=== PATIENT | female | born 2000 | race Caucasian/White ===

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

== ENCOUNTER → 2018-01-24 | Outpatient (CLI) | payer MEDICAID ==
--- NOTE | 2018-01-24 16:48 | Diagnostic Imaging Report ---
INDICATION: Follow-up low-lying placenta TECHNIQUE: Multiple real-time grayscale images were obtained over the gravid uterus. COMPARISON: 10/17/2017 and 11/30/2017. FINDINGS: The OB ultrasound exam performed on 11/30/2017 noted a single live fetus of approximately 18 weeks 1 day gestation +/- 1.5 weeks. On this exam, fetus is again identified and is now in transverse presentation with the head on maternal right. heart motion is noted and a rate of 139 bpm is recorded. On the prior exam, both renal pelves did seem prominent measuring between 2-3 mm. In the interval since the prior exam, both renal pelves have increased in size. The left renal pelvis now measures 5.5 mm while the right is estimated to be 4.0 mm. The etiology of the dilatation of the renal pelvis is not certain. There is no evidence for ascites. No other abnormality is noted. In particular, the four-chamber heart view appears to be within normal limits. The placenta is along the right lateral aspect of the uterus. There is no sign of a previa. The amniotic fluid volume is within normal limits. Cervix is identified and measures 5.4 cm in length. The growth parameters are not obtained for this study. IMPRESSION: 1. There is a single live fetus of approximately 26 weeks 4 days gestation +/- 1 week. The EDC remains April 28, 2018. 2. The renal pelves do seem more dilated than on the prior exam. The reason for this is not certain. There is no sign of ascites. Consultation with the high-risk OB physician should be considered. 3. There is no other abnormality identified. 4. The growth parameters were not obtained for this exam. Dictated by: Dictated on workstation # [id number]
== END ==
LOC: RAD 13:57
PROVIDERS: ATTEND Family Medicine
DX: Z34.02 Encounter for supervision of normal first pregnancy, second trimester (principal); Z3A.26 26 weeks gestation of pregnancy
CPT/HCPCS: 76816

== ENCOUNTER → 2018-05-03 | Outpatient (CLI) | payer MEDICAID ==
[~2018-05-03] MED LIST: DOCU100C37 PO; IBUP-1780 PO; OXYC-465 PO
--- NOTE | 2018-05-03 17:20 | Diagnostic Imaging Report ---
INDICATION: Decreased movement TECHNIQUE: The fetus was observed by the money examiner for purposes of a nonstress biophysical profile evaluation. FINDINGS: Intrauterine is currently in a cephalic presentation. The placenta is along the right lateral aspect without evidence for previa. cardiac activity at 143 beats per minute. Mild severity polyhydramnios with an index at 21 cm. Biophysical Profile Scoring: breathin Body movement: 0 tone: 2 Amniotic fluid: 2 Total BPP Score: 4/8 IMPRESSION: 1. Abnormal biophysical profile score. 2. Borderline polyhydramnios. Findings for provided by the money examiner at time of imaging. Dictated by: Dictated on workstation # [id number]
== END ==
LOC: RAD 16:21
PROVIDERS: ATTEND Family Medicine
DX: O48.0 Post-term pregnancy (principal); O36.8130 Decreased fetal movements, third trimester, not applicable or unspecified; Z3A.42 42 weeks gestation of pregnancy
CPT/HCPCS: 76819

== ENCOUNTER 2018-09-23 22:39 | Emergency (ER) | payer BC, MEDICAID ==
[~2018-09-23] VITALS: Ht 167.6 cm; Wt 54.4 kg
--- OUTSIDE RECORDS SUMMARY | 2018-09-23 22:43 | XMS REPORT ---
Author Author KE CHAMBERS Organization [facility] Address [address] [place] [address] Care Team Providers Care News Camera Person Name Role Phone KE CHAMBERS Unavailable PROBLEMS Type Condition ICD9-CM Code XZR36-PL Code Onset Dates Condition Status SNOMED Code Problem Dental caries K02.9 Active 09655751 ALLERGIES No Known Allergies ENCOUNTERS Encounter Location Date Diagnosis [place] [id number] [place] [id number] [place] [address] 95410- 7897 Jul, [place] [address] [address]- [address] Jun, 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 [place] [address] [address] [id number] [place] [address] 05648- 1156 Jun, 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 [place] [id number] [place] [address] 94015- 6270 Jun, 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 [place] [address] [id number] [place] [address] 80964- 4731 Jun, control counseling Z30.09 [place] [address] 87046- 3861 Jun, Encounter for visit Z39.2 ; 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 ; control counseling Z30.09 and Urinary tract infection without hematuria, site unspecified N39.0 [place] [id number] [place] [address] 04547- 2692 May, [place] [address] [id number] [place] [address] 68478- 5486 Apr, Post-term , 40-42 weeks of gestation O48.0 and Decreased movements in third trimester, single or unspecified fetus O36.8130 [place] [address] [address] [id number] [place] [address] 35017- 6411 Apr, 40 weeks gestation of Z3A.40 ; Third trimester Z34.93 and Positive GBS test B95.1 [place] [address] [id number] [place] [address] 09835- 2285 09 Apr, 2018 39 weeks gestation of Z3A.39 and Third trimester Z34.93 [facility] [id number] [place] [id number] [phone] Apr, 2018 Dental examination Z01.20 [place] [address] [id number] [place] [address] 85236- 4876 02 Apr, 2018 38 weeks gestation of Z3A.38 ; Third trimester Z34.93 and Positive GBS test B95.1 [place] [address] [id number] [place] [address] 61009- 8372 Mar, Third trimester Z34.93 ; 37 weeks gestation of Z3A.37 and Positive GBS test B95.1 [place] [address] [id number] [place] [address] 19569- 2935 Mar, care in third trimester Z34.93 ; 36 weeks gestation of Z3A.36 and Yeast infection B37.9 [place] [address] [id number] [place] [address] 70105- 3476 Mar, care in third trimester Z34.93 and 35 weeks gestation of Z3A.35 [place] [address] [id number] [place] [address] 79703- 6519 Feb, 33 weeks gestation of Z3A.33 and Third trimester Z34.93 [place] [address] [id number] [place] [address] 18205- 7464 Feb, Dental examination Z01.20 [place] [address] [address] [id number] [place] [address] 59436- 5220 Feb, care in third trimester Z34.93 ; Encounter for immunization Z23 and 31 weeks gestation of Z3A.31 [place] [address] 80228- 1578 January, Third trimester Z34.93 ; 29 weeks gestation of Z3A.29 and Abnormal obstetric ultrasound scan O28.3 [place] [address] 28254- 1936 January, Normal first in second trimester Z34.02 and 25 weeks gestation of Z3A.25 [place] [address] 98764- 5619 Dec, Dental examination Z01.20 and Dental caries K02.9 [place] [address] 05250- 3128 Dec, [place] [address] 80448- 7180 Nov, Screening for deficiency anemia Z13.0 [place] [address] 18218- 2866 Nov, [place] [address] 15392- 5490 Nov, Normal first in second trimester Z34.02 ; 20 weeks gestation of Z3A.20 and High risk teen in second trimester O09.892 [place] [address] [id number] [place] [address] 18125- 4516 Nov, [place] [address] [id number] [place] [address] 18814- 0906 Nov, 16 weeks gestation of Z3A.16 ; Low lying placenta NOS or without hemorrhage, second trimester O44.42 ; High risk teen in second trimester O09.892 and Second trimester Z34.92 [place] [address] [id number] [place] [address] 07349- 2441 Sep, Normal , first Z34.00 ; 12 weeks gestation of Z3A.12 and High risk teen in second trimester O09.892 [facility] [address] [facility] [id number] [place] [address] Sep, [facility] [address] [facility] [id number] [place] [address]234 Sep, Encounter for test, result unknown Z32.00 IMMUNIZATIONS No Known Immunizations SOCIAL HISTORY Never Assessed REASON FOR VISIT depression fu, patient states she hasn't been able to 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 medication from pharmacy _ _ héctor little PLAN OF CARE Activity Details Follow Up 2 Months with [facility] Reason: VITAL SIGNS MEDICATIONS Medication Instructions Dosage Frequency Start Date End Date Duration Status Zoloft 25 MG Orally Once a day 1/2 tab x 6 days then 1 tablet 24h Jun, 30 day(s) Not-Taking Ortho Micronor 0.35 MG Orally Once a day 1 tablet 24h Jun, 28 days Not-Taking RESULTS No Results PROCEDURES No Known procedures INSTRUCTIONS MEDICATIONS ADMINISTERED No Known Medications MEDICAL (GENERAL) HISTORY Type Description Date Medical History - April 2018 Surgical History Appendectomy 2011 Surgical History Tonsilectomy 2012 Hospitalization History Surgery
--- OUTSIDE RECORDS SUMMARY | 2018-09-23 22:43 | XMS REPORT ---
Author Author KE CHAMBERS Organization [facility] Address [address] [place] [address] Care Team Providers Care Storage Garage Manager Name Role Phone KE CHAMBERS Unavailable PROBLEMS Type Condition ICD9-CM Code CES91-GG Code Onset Dates Condition Status SNOMED Code Problem Dental caries K02.9 Active [id number] ALLERGIES No Information ENCOUNTERS Encounter Location Date Diagnosis [facility] [id number] [place] [address] 73992- 2677 Jul, [facility] [id number] [place] [address] 86434- 4968 Jul, [facility] [id number] [place] [address] 16618- 0091 Jun, 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 [facility] [id number] [place] [address] 77754- 8212 Jun, 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 [facility] [address] [place] [address] 58063- 8866 Jun, 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 [facility] [id number] [place] [address] 07928- 6292 Jun, control counseling Z30.09 [facility] [id number] [place] [address] 78658- 7592 Jun, Encounter for visit Z39.2 ; 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 ; control counseling Z30.09 and Urinary tract infection without hematuria, site unspecified N39.0 [facility] [address] [place] [address] 04529- 4180 May, [facility] [id number] [place] [address] 62546- 6233 Apr, Post-term , 40-42 weeks of gestation O48.0 and Decreased movements in third trimester, single or unspecified fetus O36.8130 [place] [id number] [place] [address] 09599- 4219 Apr, 40 weeks gestation of Z3A.40 ; Third trimester Z34.93 and Positive GBS test B95.1 [place] [address] 56886- 0568 09 Apr, 2018 39 weeks gestation of Z3A.39 and Third trimester Z34.93 [facility] [address] [id number] Apr, Dental examination Z01.[address] 88984- 0718 Apr, 38 weeks gestation of Z3A.38 ; Third trimester Z34.93 and Positive GBS test B95.1 [place] [id number] [place] [address] 45476- 9440 Mar, Third trimester Z34.93 ; 37 weeks gestation of Z3A.37 and Positive GBS test B95.1 [place] [address] [id number] [place] [address] 48607- 6878 Mar, care in third trimester Z34.93 ; 36 weeks gestation of Z3A.36 and Yeast infection B37.9 [place] [address] [id number] [place] [address] 62264- 3961 Mar, care in third trimester Z34.93 and 35 weeks gestation of Z3A.[address] 13404- 6006 Feb, 33 weeks gestation of Z3A.33 and Third trimester Z34.[address] 36362- 4362 Feb, Dental examination Z01.20 [place] [address] [place] [address] 09751- 1860 Feb, care in third trimester Z34.93 ; Encounter for immunization Z23 and 31 weeks gestation of Z3A.31 [place] [id number] [place] [address] 14566- 4830 January, Third trimester Z34.93 ; 29 weeks gestation of Z3A.29 and Abnormal obstetric ultrasound scan O28.3 [place] [address] [id number] [place] [address] 46322- 0168 January, Normal first in second trimester Z34.02 and 25 weeks gestation of Z3A.25 [place] [address] [id number] [place] [address] 37728- 2984 Dec, Dental examination Z01.20 and Dental caries K02.9 [place] [address] 60141- 9214 Dec, [place] [address] 07479- 3778 Nov, Screening for deficiency anemia Z13.0 [place] [address] [id number] [place] [address] 83827- 4089 Nov, [place] [address] [id number] [place] [address] 70025- 9582 Nov, Normal first in second trimester Z34.02 ; 20 weeks gestation of Z3A.20 and High risk teen in second trimester O09.892 [place] [address] [id number] [place] [address] 03808- 9404 Nov, [place] [address] 12635- 7521 Nov, 16 weeks gestation of Z3A.16 ; Low lying placenta NOS or without hemorrhage, second trimester O44.42 ; High risk teen in second trimester O09.892 and Second trimester Z34.92 [place] [address] [facility] [id number], [place] [address]- 2843 Sep, Normal , first Z34.00 ; 12 weeks gestation of Z3A.12 and High risk teen in second trimester O09.892 [facility] [address] [facility] [id number], [place] [address]- 0666 Sep, [facility] [address] [facility] [id number], [place] [address]- [address]75 Sep, Encounter for test, result unknown Z32.00 IMMUNIZATIONS No Known Immunizations SOCIAL HISTORY Never Assessed REASON FOR VISIT refill request PLAN OF CARE VITAL SIGNS MEDICATIONS Unknown Medications RESULTS No Results PROCEDURES No Known procedures INSTRUCTIONS MEDICATIONS ADMINISTERED No Known Medications MEDICAL (GENERAL) HISTORY Type Description Date Medical History - April 2018 Surgical History Appendectomy 2011 Surgical History Tonsilectomy 2013 Hospitalization History Surgery
--- OUTSIDE RECORDS SUMMARY | 2018-09-23 22:43 | XMS REPORT ---
Author Author KE CHAMBERS Organization [facility] [place] Address [address] [place] [address] Care Team Providers Care Historic Sites Registrar Name Role Phone KE CHAMBERS Unavailable PROBLEMS Type Condition ICD9-CM Code PGR37-MQ Code Onset Dates Condition Status SNOMED Code Problem Dental caries K02.9 Active 28002505 ALLERGIES No Information ENCOUNTERS Encounter Location Date Diagnosis [facility] [place] [id number] [place] [address] 77741- 2509 Jul, [facility] [place] [id number] [place] [address] 37756- 4749 Jul, [facility] [place] [id number] [place] [address] 49416- 7327 Jun, 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 [facility] [place] [id number] [place] [address] 65019- 8255 Jun, 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 [facility] [place] [address] [place] [address] 79352- 4534 Jun, 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 [facility] [place] [id number] [place] [address] 47894- 3788 Jun, control counseling Z30.09 [facility] [place] [id number] [place] [address] 58128- 8421 Jun, Encounter for visit Z39.2 ; 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 ; control counseling Z30.09 and Urinary tract infection without hematuria, site unspecified N39.0 [facility] [place] [address] [place] [address] 91502- 8590 May, [facility] [place] [address] [id number] [place] [address] 48450- 8088 Apr, Post-term , 40-42 weeks of gestation O48.0 and Decreased movements in third trimester, single or unspecified fetus O36.8130 [place] [id number] [place] [address] 15438- 8940 Apr, 40 weeks gestation of Z3A.40 ; Third trimester Z34.93 and Positive GBS test B95.1 [place] [address] 41527- 0697 09 Apr, 2018 39 weeks gestation of Z3A.39 and Third trimester Z34.93 [facility] [address] [id number] Apr, Dental examination Z01.[address] 56047- 7247 Apr, 38 weeks gestation of Z3A.38 ; Third trimester Z34.93 and Positive GBS test B95.1 [place] [id number] [place] [address] 53689- 2166 Mar, Third trimester Z34.93 ; 37 weeks gestation of Z3A.37 and Positive GBS test B95.1 [place] [id number] [place] [address] 92504- 2378 Mar, care in third trimester Z34.93 ; 36 weeks gestation of Z3A.36 and Yeast infection B37.9 [place] [id number] [place] [address] 69611- 5777 Mar, care in third trimester Z34.93 and 35 weeks gestation of Z3A.[address] 64280- 9283 Feb, 33 weeks gestation of Z3A.33 and Third trimester Z34.[address] 14113- 9297 Feb, Dental examination Z01.20 [place] [address] [place] [address] 12891- 7163 Feb, care in third trimester Z34.93 ; Encounter for immunization Z23 and 31 weeks gestation of Z3A.31 [place] [id number] [place] [address] 78142- 0944 January, Third trimester Z34.93 ; 29 weeks gestation of Z3A.29 and Abnormal obstetric ultrasound scan O28.3 [place] [id number] [place] [address] 92273- 4267 January, Normal first in second trimester Z34.02 and 25 weeks gestation of Z3A.25 [place] [id number] [place] [address] 68961- 0217 Dec, Dental examination Z01.20 and Dental caries K02.9 [place] [address] 25710- 9492 Dec, [place] [address] 04613- 7492 Nov, Screening for deficiency anemia Z13.0 [place] [id number] [place] [address] 61731- 6196 Nov, [place] [id number] [place] [address] 23922- 6929 Nov, Normal first in second trimester Z34.02 ; 20 weeks gestation of Z3A.20 and High risk teen in second trimester O09.892 [place] [id number] [place] [address] 34805- 7222 Nov, [place] [address] 19193- 9017 Nov, 16 weeks gestation of Z3A.16 ; Low lying placenta NOS or without hemorrhage, second trimester O44.42 ; High risk teen in second trimester O09.892 and Second trimester Z34.92 [place] [address] [facility] [id number] [place] [address]- 0884 Sep, Normal , first Z34.00 ; 12 weeks gestation of Z3A.12 and High risk teen in second trimester O09.892 [facility] [place] [address] [facility] [id number], [place] [address]- 6480 Sep, [facility] [place] [address] [facility] [id number], [place] [address]- 8547 Sep, Encounter for test, result unknown Z32.00 IMMUNIZATIONS No Known Immunizations SOCIAL HISTORY Never Assessed REASON FOR VISIT PPD Appt r/s PLAN OF CARE VITAL SIGNS MEDICATIONS Unknown Medications RESULTS No Results PROCEDURES No Known procedures INSTRUCTIONS MEDICATIONS ADMINISTERED No Known Medications MEDICAL (GENERAL) HISTORY Type Description Date Medical History - April 2018 Surgical History Appendectomy 2011 Surgical History Tonsilectomy 2012 Hospitalization History Surgery
--- OUTSIDE RECORDS SUMMARY | 2018-09-23 22:44 | XMS REPORT ---
Author Author KE CHAMBERS Organization [facility] Address [address] [place] [address] Care Team Providers Care Manufacturing Engineering Technologist Name Role Phone KE CHAMBERS Unavailable PROBLEMS Type Condition ICD9-CM Code MIZ34-XX Code Onset Dates Condition Status SNOMED Code Problem Dental caries K02.9 Active [id number] ALLERGIES No Information ENCOUNTERS Encounter Location Date Diagnosis [facility] [id number] [place] [address] 67838- 1766 Jun, [place] [address] 64654- 3082 Jun, [facility] [address] 20024- 5050 Jun, Encounter for visit Z39.2 ; 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 ; control counseling Z30.09 and Urinary tract infection without hematuria, site unspecified N39.0 [place] [id number] [place] [address] 64482- 5048 May, [place] [id number] [place] [address] 51576- 0340 Apr, Post-term , 40-42 weeks of gestation O48.0 and Decreased movements in third trimester, single or unspecified fetus O36.8130 [place] [id number] [place] [address] 27709- 1751 Apr, 40 weeks gestation of Z3A.40 ; Third trimester Z34.93 and Positive GBS test B95.1 [place] [address] [place] [address] 82850- 7446 Apr, 39 weeks gestation of Z3A.39 and Third trimester Z34.93 [facility] [address] [place] [address] [id number] 07 Apr, 2018 Dental examination Z01.20 [place] [id number] [place] [address] 28624- 5894 Apr, 38 weeks gestation of Z3A.38 ; Third trimester Z34.93 and Positive GBS test B95.1 [place] [address] 80148- 5531 Mar, Third trimester Z34.93 ; 37 weeks gestation of Z3A.37 and Positive GBS test B95.1 [place] [address] 52399- 2616 Mar, care in third trimester Z34.93 ; 36 weeks gestation of Z3A.36 and Yeast infection B37.9 [place] [address] 38974- 4094 Mar, care in third trimester Z34.93 and 35 weeks gestation of Z3A.35 [place] [address] 12443- 4990 Feb, 33 weeks gestation of Z3A.33 and Third trimester Z34.93 [place] [address] 69850- 2641 27 Feb, 2018 Dental examination Z01.20 [place] [address] 08636- 5205 13 Feb, 2018 care in third trimester Z34.93 ; Encounter for immunization Z23 and 31 weeks gestation of Z3A.31 [place] [address] 87043- 0903 January, Third trimester Z34.93 ; 29 weeks gestation of Z3A.29 and Abnormal obstetric ultrasound scan O28.3 [place] [address] 08246- 5884 January, Normal first in second trimester Z34.02 and 25 weeks gestation of Z3A.25 [place] [address] [address] 1198 13 Dec, 2017 Dental examination Z01.20 and Dental caries K02.9 [place] [id number] [place] [address] 87241- 8057 Dec, [place] [id number] [place] [address] 86828- 3786 Nov, Screening for deficiency anemia Z13.0 [place] [id number] [place] [address] 32107- 4177 Nov, [place] [id number] [place] [address] 06730- 8125 Nov, Normal first in second trimester Z34.02 ; 20 weeks gestation of Z3A.20 and High risk teen in second trimester O09.892 [place] [id number] [place] [address] 21682- 9884 Nov, [place] [id number] [place] [address] 01928- 8035 Nov, 16 weeks gestation of Z3A.16 ; Low lying placenta NOS or without hemorrhage, second trimester O44.42 ; High risk teen in second trimester O09.892 and Second trimester Z34.92 [place] [id number] [place] [address] 09681- 8358 Sep, Normal , first Z34.00 ; 12 weeks gestation of Z3A.12 and High risk teen in second trimester O09.892 [place] [id number] [place] [address] 04188- 7465 Sep, [place] [id number] [place] [address] 84591- 2696 Sep, Encounter for test, result unknown Z32.00 IMMUNIZATIONS No Known Immunizations SOCIAL HISTORY Never Assessed REASON FOR VISIT PLAN OF CARE VITAL SIGNS MEDICATIONS Unknown Medications RESULTS No Results PROCEDURES No Known procedures INSTRUCTIONS MEDICATIONS ADMINISTERED No Known Medications MEDICAL (GENERAL) HISTORY Type Description Date Medical History - April 2018 Surgical History Appendectomy 2011 Surgical History Tonsilectomy 2012 Hospitalization History Surgery
--- OUTSIDE RECORDS SUMMARY | 2018-09-23 22:44 | XMS REPORT ---
Author Author KE CHAMBERS Organization [facility] Address [address] [place] [address] Care Team Providers Care Microfiche Duplicator Name Role Phone KE CHAMBERS Unavailable PROBLEMS Type Condition ICD9-CM Code CST16-ME Code Onset Dates Condition Status SNOMED Code Problem Dental caries K02.9 Active [id number] ALLERGIES No Information ENCOUNTERS Encounter Location Date Diagnosis [facility] [id number] [place] [address] 01698- 4120 Jun, [facility] [address] 32638- 0176 Jun, [facility] [address] 27718- 1287 May, [facility] [id number] [place] [address] 65407- 3924 Apr, Post-term , 40-42 weeks of gestation O48.0 and Decreased movements in third trimester, single or unspecified fetus O36.8130 [facility] [id number] [place] [address] 85377- 7497 Apr, 40 weeks gestation of Z3A.40 ; Third trimester Z34.93 and Positive GBS test B95.1 [facility] [id number] [place] [address] 03896- 7541 Apr, 39 weeks gestation of Z3A.39 and Third trimester Z34.93 [facility] [id number] [place] [address] [phone] Apr, Dental examination Z01.20 [facility] [id number] [place] [address] 73614- 7812 Apr, 38 weeks gestation of Z3A.38 ; Third trimester Z34.93 and Positive GBS test B95.1 [place] [id number] [place] [address] 66878- 5204 Mar, Third trimester Z34.93 ; 37 weeks gestation of Z3A.37 and Positive GBS test B95.1 [place] [id number] [place] [address] 27702- 5021 Mar, care in third trimester Z34.93 ; 36 weeks gestation of Z3A.36 and Yeast infection B37.9 [place] [id number] [place] [address] 45408- 6809 Mar, care in third trimester Z34.93 and 35 weeks gestation of Z3A.35 [place] [address] 44878- 7010 Feb, 33 weeks gestation of Z3A.33 and Third trimester Z34.93 [place] [address] 87033- 5858 Feb, Dental examination Z01.20 [place] [address] 16253- 5348 Feb, care in third trimester Z34.93 ; Encounter for immunization Z23 and 31 weeks gestation of Z3A.31 [place] [id number] [place] [address] 00736- 0826 January, Third trimester Z34.93 ; 29 weeks gestation of Z3A.29 and Abnormal obstetric ultrasound scan O28.3 [place] [id number] [place] [address] 36077- 7248 January, Normal first in second trimester Z34.02 and 25 weeks gestation of Z3A.25 [place] [id number] [place] [address] 15040- 4979 Dec, Dental examination Z01.20 and Dental caries K02.9 [place] [address] [place] [address] [address]- 7011 Dec, [place] [id number] [place] [address] 92336- 2700 Nov, Screening for deficiency anemia Z13.0 [place] [id number] [place] [address] 00669- 9083 Nov, [place] [address] 04938- 1337 Nov, Normal first in second trimester Z34.02 ; 20 weeks gestation of Z3A.20 and High risk teen in second trimester O09.892 [place] [address] 94704- 8863 Nov, [place] [address] [id number] [place] [address] 43969- 3202 Nov, 16 weeks gestation of Z3A.16 ; Low lying placenta NOS or without hemorrhage, second trimester O44.42 ; High risk teen in second trimester O09.892 and Second trimester Z34.92 [place] [address] [place] [id number] [place] [address] 45926- 9137 Sep, Normal , first Z34.00 ; 12 weeks gestation of Z3A.12 and High risk teen in second trimester O09.892 [place] [address] [id number] [place] [address] 48383- 6279 Sep, [place] [address] [id number] [place] [address] 50971- 4038 Sep, Encounter for test, result unknown Z32.00 IMMUNIZATIONS No Known Immunizations SOCIAL HISTORY Never Assessed REASON FOR VISIT OB 1wk f/u -- héctor little PLAN OF CARE Activity Details Follow Up 1 Week Reason: VITAL SIGNS Height 66 in 2018-04-10 Weight 156.8 lbs 2018-04-10 Temperature 97.6 degrees Fahrenheit 2018-04-10 BMI 25.308 kg/m2 2018-04-10 Blood pressure systolic 118 mmHg 2018-04-10 Blood pressure diastolic 70 mmHg 2018-04-10 MEDICATIONS Medication Instructions Dosage Frequency Start Date End Date Duration Status Complete 14-0.4 MG Orally Once a day 1 tablet 24h Active RESULTS Name Result Date Reference Range UA OB DIP (IN HOUSE) 2018-04-10 Glucose neg Protein neg PROCEDURES Procedure Date Ordered Result Body Site URINE-NO MICRO April 10, 2018 INSTRUCTIONS MEDICATIONS ADMINISTERED No Known Medications MEDICAL (GENERAL) HISTORY Type Description Date Medical History - April 2018 Surgical History Appendectomy 2011 Surgical History Tonsilectomy 2012 Hospitalization History Surgery
--- OUTSIDE RECORDS SUMMARY | 2018-09-23 22:44 | XMS REPORT ---
Author Author KE CHAMBERS Organization [facility] Address [address] [place] [address] Care Team Providers Care Otr Company Driver Name Role Phone KE CHAMBERS Unavailable PROBLEMS Type Condition ICD9-CM Code TQH32-MW Code Onset Dates Condition Status SNOMED Code Problem Dental caries K02.9 Active [id number] ALLERGIES No Known Allergies ENCOUNTERS Encounter Location Date Diagnosis [facility] [id number] [place] [address] 07731- 8856 Jun, [facility] [id number] [place] [address] 48888- 6167 Jun, [facility] [address] 35205- 0158 May, [facility] [id number] [place] [address] 66871- 6145 Apr, Post-term , 40-42 weeks of gestation O48.0 and Decreased movements in third trimester, single or unspecified fetus O36.8130 [facility] [id number] [place] [address] 87457- 4847 Apr, 40 weeks gestation of Z3A.40 ; Third trimester Z34.93 and Positive GBS test B95.1 [facility] [id number] [place] [address] 41743- 7425 Apr, 39 weeks gestation of Z3A.39 and Third trimester Z34.93 [facility] [id number] [place] [address] [phone] Apr, Dental examination Z01.20 [facility] [id number] [place] [address] 72189- 5198 Apr, 38 weeks gestation of Z3A.38 ; Third trimester Z34.93 and Positive GBS test B95.1 [place] [id number] [place] [address] 05863- 0320 Mar, Third trimester Z34.93 ; 37 weeks gestation of Z3A.37 and Positive GBS test B95.1 [place] [id number] [place] [address] 84613- 2149 Mar, care in third trimester Z34.93 ; 36 weeks gestation of Z3A.36 and Yeast infection B37.9 [place] [id number] [place] [address] 40457- 1002 Mar, care in third trimester Z34.93 and 35 weeks gestation of Z3A.35 [place] [id number] [place] [address] 77220- 8932 Feb, 33 weeks gestation of Z3A.33 and Third trimester Z34.93 [place] [id number] [place] [address] 28037- 0883 Feb, Dental examination Z01.20 [place] [address] 15803- 1122 Feb, care in third trimester Z34.93 ; Encounter for immunization Z23 and 31 weeks gestation of Z3A.31 [place] [id number] [place] [address] 57366- 0389 January, Third trimester Z34.93 ; 29 weeks gestation of Z3A.29 and Abnormal obstetric ultrasound scan O28.3 [place] [id number] [place] [address] 61858- 6454 January, Normal first in second trimester Z34.02 and 25 weeks gestation of Z3A.25 [place] [id number] [place] [address] 76845- 1271 Dec, Dental examination Z01.20 and Dental caries K02.9 [place] [address] [id number] [place] [address] 22187- 1863 Dec, [place] [id number] [place] [address] 73396- 1229 Nov, Screening for deficiency anemia Z13.0 [place] [id number] [place] [address] 84835- 9510 Nov, [place] [address] 20136- 6690 Nov, Normal first in second trimester Z34.02 ; 20 weeks gestation of Z3A.20 and High risk teen in second trimester O09.892 [place] [id number] [place] [address] 31773- 5980 Nov, [place] [id number] [place] [address] 79578- 7030 Nov, 16 weeks gestation of Z3A.16 ; Low lying placenta NOS or without hemorrhage, second trimester O44.42 ; High risk teen in second trimester O09.892 and Second trimester Z34.92 [place] [id number] [place] [address] 45454- 4563 Sep, Normal , first Z34.00 ; 12 weeks gestation of Z3A.12 and High risk teen in second trimester O09.892 [place] [id number] [place] [address] 39505- 8533 Sep, [place] [id number] [place] [address] 18112- 6299 Sep, Encounter for test, result unknown Z32.00 IMMUNIZATIONS No Known Immunizations SOCIAL HISTORY Never Assessed REASON FOR VISIT Elevated BP-----DBennettRN PLAN OF CARE Activity Details Follow Up Sunday NST, IOL scheduled Reason: VITAL SIGNS Height 66 in 2018-04-29 Weight 160 lbs 2018-04-29 Temperature 98.2 degrees Fahrenheit 2018-04-29 Heart Rate 90 bpm 2018-04-29 Respiratory Rate 20 2018-04-29 BMI 25.825 kg/m2 2018-04-29 Blood pressure systolic 118 mmHg 2018-04-29 Blood pressure diastolic 74 mmHg 2018-04-29 MEDICATIONS Medication Instructions Dosage Frequency Start Date End Date Duration Status Complete 14-0.4 MG Orally Once a day 1 tablet 24h Active RESULTS Name Result Date Reference Range UA OB DIP (IN HOUSE) 2018-04-29 Glucose neg Protein neg PROCEDURES Procedure Date Ordered Result Body Site URINE-NO MICRO Apr 29, 2018 INSTRUCTIONS MEDICATIONS ADMINISTERED No Known Medications MEDICAL (GENERAL) HISTORY Type Description Date Medical History - April 2018 Surgical History Appendectomy 2011 Surgical History Tonsilectomy 2012 Hospitalization History Surgery
--- OUTSIDE RECORDS SUMMARY | 2018-09-23 22:44 | XMS REPORT ---
Author Author KE CHAMBERS Organization [facility] Address [address] [place] [address] Care Team Providers Care Barrel Washer Machine Name Role Phone KE CHAMBERS Unavailable PROBLEMS Type Condition ICD9-CM Code UGM90-RG Code Onset Dates Condition Status SNOMED Code Problem Dental caries K02.9 Active [id number] ALLERGIES No Known Allergies ENCOUNTERS Encounter Location Date Diagnosis [facility] [id number] [place] [address] 25387- 5958 Jun, [facility] [id number] [place] [address] 55578- 5119 Jun, [facility] [address] 87794- 0613 May, [facility] [id number] [place] [address] 09639- 2389 Apr, Post-term , 40-42 weeks of gestation O48.0 and Decreased movements in third trimester, single or unspecified fetus O36.8130 [facility] [id number] [place] [address] 52304- 4985 Apr, 40 weeks gestation of Z3A.40 ; Third trimester Z34.93 and Positive GBS test B95.1 [facility] [id number] [place] [address] 50407- 7311 Apr, 39 weeks gestation of Z3A.39 and Third trimester Z34.93 [facility] [id number] [place] [address] [id number] Apr, Dental examination Z01.20 [facility] [id number] [place] [address] 04403- 9047 Apr, 38 weeks gestation of Z3A.38 ; Third trimester Z34.93 and Positive GBS test B95.1 [place] [id number] [place] [address] 02209- 8132 Mar, Third trimester Z34.93 ; 37 weeks gestation of Z3A.37 and Positive GBS test B95.1 [place] [id number] [place] [address] 43692- 2302 Mar, care in third trimester Z34.93 ; 36 weeks gestation of Z3A.36 and Yeast infection B37.9 [place] [id number] [place] [address] 00598- 0813 Mar, care in third trimester Z34.93 and 35 weeks gestation of Z3A.35 [place] [id number] [place] [address] 12274- 3069 Feb, 33 weeks gestation of Z3A.33 and Third trimester Z34.93 [place] [id number] [place] [address] 94670- 3217 Feb, Dental examination Z01.20 [place] [address] 72876- 1953 Feb, care in third trimester Z34.93 ; Encounter for immunization Z23 and 31 weeks gestation of Z3A.31 [place] [id number] [place] [address] 78242- 6295 January, Third trimester Z34.93 ; 29 weeks gestation of Z3A.29 and Abnormal obstetric ultrasound scan O28.3 [place] [id number] [place] [address] 33565- 3013 January, Normal first in second trimester Z34.02 and 25 weeks gestation of Z3A.25 [place] [id number] [place] [address] 13515- 0325 Dec, Dental examination Z01.20 and Dental caries K02.9 [place] [id number] [place] [address] 23952- 7556 Dec, [place] [id number] [place] [address] 90903- 0540 Nov, Screening for deficiency anemia Z13.0 [place] [id number] [place] [address] 34549- 9921 Nov, [place] [address] 44733- 5529 Nov, Normal first in second trimester Z34.02 ; 20 weeks gestation of Z3A.20 and High risk teen in second trimester O09.892 [place] [id number] [place] [address] 70357- 9866 Nov, [place] [id number] [place] [address] 73278- 1483 Nov, 16 weeks gestation of Z3A.16 ; Low lying placenta NOS or without hemorrhage, second trimester O44.42 ; High risk teen in second trimester O09.892 and Second trimester Z34.92 [place] [id number] [place] [address] 17746- 5665 Sep, Normal , first Z34.00 ; 12 weeks gestation of Z3A.12 and High risk teen in second trimester O09.892 [place] [id number] [place] [address] 67202- 8582 Sep, [place] [id number] [place] [address] 61225- 8816 Sep, Encounter for test, result unknown Z32.00 IMMUNIZATIONS No Known Immunizations SOCIAL HISTORY Never Assessed REASON FOR VISIT OB f/u 1 week-billMonique PLAN OF CARE Activity Details Follow Up 1 Week Reason: VITAL SIGNS Height 66 in 2018-04-18 Weight 157.1 lbs 2018-04-18 Temperature 98.7 degrees Fahrenheit 2018-04-18 Heart Rate 84 bpm 2018-04-18 Respiratory Rate 18 2018-04-18 BMI 25.357 kg/m2 2018-04-18 Blood pressure systolic 124 mmHg 2018-04-18 Blood pressure diastolic 72 mmHg 2018-04-18 MEDICATIONS Medication Instructions Dosage Frequency Start Date End Date Duration Status Complete 14-0.4 MG Orally Once a day 1 tablet 24h Active RESULTS Name Result Date Reference Range UA OB DIP (IN HOUSE) 2018-04-18 Glucose neg Protein neg PROCEDURES Procedure Date Ordered Result Body Site URINE-NO MICRO Apr 18, 2018 INSTRUCTIONS MEDICATIONS ADMINISTERED No Known Medications MEDICAL (GENERAL) HISTORY Type Description Date Medical History - April 2018 Surgical History Appendectomy 2011 Surgical History Tonsilectomy 2012 Hospitalization History Surgery
--- OUTSIDE RECORDS SUMMARY | 2018-09-23 22:44 | XMS REPORT ---
Author Author KE CHAMBERS Organization [facility] Address [address] [place] [address] Care Team Providers Care Plumbing Assembler Installer Name Role Phone KE CHAMBERS Unavailable PROBLEMS Type Condition ICD9-CM Code [id number] Code Onset Dates Condition Status SNOMED Code Problem Dental caries K02.9 Active 56121097 ALLERGIES No Information ENCOUNTERS Encounter Location Date Diagnosis [place] [id number] [place] [id number] [place] [address] 19332- 9317 Jun, [place] [address] 25385- 5971 Jun, control counseling Z30.09 [place] [address] 35847- 9433 Jun, Encounter for visit Z39.2 ; 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 ; control counseling Z30.09 and Urinary tract infection without hematuria, site unspecified N39.0 [place] [address] [place] [id number] [place] [address] 97309- 8788 May, [place] [address] [place] [id number] [place] [address] 51816- 9754 Apr, Post-term , 40-42 weeks of gestation O48.0 and Decreased movements in third trimester, single or unspecified fetus O36.8130 [place] [address] [place] [id number] [place] [address] 23505- 2323 Apr, 40 weeks gestation of Z3A.40 ; Third trimester Z34.93 and Positive GBS test B95.1 [place] [address] [place] [id number] [place] [address] 81444- 0638 Apr, 39 weeks gestation of Z3A.39 and Third trimester Z34.93 [facility] [address] [place] [address] [id number] Apr, Dental examination Z01.20 [place] [address] [place] [id number] [place] [address] 84962- 5496 Apr, 38 weeks gestation of Z3A.38 ; Third trimester Z34.93 and Positive GBS test B95.1 [place] [address] 25899- 4219 Mar, Third trimester Z34.93 ; 37 weeks gestation of Z3A.37 and Positive GBS test B95.1 [place] [address] 83922- 2564 Mar, care in third trimester Z34.93 ; 36 weeks gestation of Z3A.36 and Yeast infection B37.9 [place] [address] 15791- 1568 Mar, care in third trimester Z34.93 and 35 weeks gestation of Z3A.35 [place] [address] 79419- 8686 Feb, 33 weeks gestation of Z3A.33 and Third trimester Z34.93 [place] [address] 56020- 1053 Feb, Dental examination Z01.20 [place] [address] 77716- 1502 Feb, care in third trimester Z34.93 ; Encounter for immunization Z23 and 31 weeks gestation of Z3A.31 [place] [address] 10614- 1486 January, Third trimester Z34.93 ; 29 weeks gestation of Z3A.29 and Abnormal obstetric ultrasound scan O28.3 [place] [address] 42577- 3244 January, Normal first in second trimester Z34.02 and 25 weeks gestation of Z3A.25 [place] [address] [place] [address] 56476- 4997 Dec, Dental examination Z01.20 and Dental caries K02.9 [place] [address] [place] [id number] [place] [address] 10579- 9685 Dec, [place] [address] [place] [id number] [place] [address] 58104- 8220 Nov, Screening for deficiency anemia Z13.0 [place] [address] [place] [id number] [place] [address] 66985- 7247 Nov, [place] [address] [place] [id number] [place] [address] 86000- 9703 Nov, Normal first in second trimester Z34.02 ; 20 weeks gestation of Z3A.20 and High risk teen in second trimester O09.892 [place] [address] [place] [id number] [place] [address] 74330- 6743 Nov, [place] [address] [place] [id number] [place] [address] 70101- 4876 Nov, 16 weeks gestation of Z3A.16 ; Low lying placenta NOS or without hemorrhage, second trimester O44.42 ; High risk teen in second trimester O09.892 and Second trimester Z34.92 [place] [address] [place] [id number] [place] [address] 52543- 6604 Sep, Normal , first Z34.00 ; 12 weeks gestation of Z3A.12 and High risk teen in second trimester O09.892 [place] [address] [place] [id number] [place] [address] 71878- 8940 Sep, [place] [address] [place] [id number] [place] [address] 90529- 4072 Sep, Encounter for test, result unknown Z32.00 IMMUNIZATIONS No Known Immunizations SOCIAL HISTORY Never Assessed REASON FOR VISIT med question PLAN OF CARE VITAL SIGNS MEDICATIONS Medication Instructions Dosage Frequency Start Date End Date Duration Status Ortho Micronor 0.35 MG Orally Once a day 1 tablet 24h Jun, 28 days Active RESULTS No Results PROCEDURES No Known procedures INSTRUCTIONS MEDICATIONS ADMINISTERED No Known Medications MEDICAL (GENERAL) HISTORY Type Description Date Medical History - April 2018 Surgical History Appendectomy 2011 Surgical History Tonsilectomy 2012 Hospitalization History Surgery
--- OUTSIDE RECORDS SUMMARY | 2018-09-23 22:44 | XMS REPORT ---
Author Author KE CHAMBERS Organization [facility] Address [address] [place] [address] Care Team Providers Care Certified Coatings Inspector Name Role Phone KE CHAMBERS Unavailable PROBLEMS Type Condition ICD9-CM Code FUA75-MX Code Onset Dates Condition Status SNOMED Code Problem Dental caries K02.9 Active 50643675 ALLERGIES No Known Allergies ENCOUNTERS Encounter Location Date Diagnosis [place] [address] 68672- 2567 Jun, [place] [address] 06710- 5822 Jun, control counseling Z30.09 [place] [address] 84438- 5107 Jun, Encounter for visit Z39.2 ; 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 ; control counseling Z30.09 and Urinary tract infection without hematuria, site unspecified N39.0 [place] [address] [place] [id number] [place] [address] 10597- 5726 May, [place] [address] [place] [id number] [place] [address] 16185- 4655 Apr, Post-term , 40-42 weeks of gestation O48.0 and Decreased movements in third trimester, single or unspecified fetus O36.8130 [place] [address] [place] [id number] [place] [address] 91246- 8245 Apr, 40 weeks gestation of Z3A.40 ; Third trimester Z34.93 and Positive GBS test B95.1 [place] [address] [place] [id number] [place] [address] 66414- 0212 Apr, 39 weeks gestation of Z3A.39 and Third trimester Z34.93 [facility] [address] [place] [id number] [place] [address] [phone] Apr, Dental examination Z01.20 [place] [address] [place] [id number] [place] [address] 18204- 7402 Apr, 38 weeks gestation of Z3A.38 ; Third trimester Z34.93 and Positive GBS test B95.1 [place] [address] 64495- 5778 Mar, Third trimester Z34.93 ; 37 weeks gestation of Z3A.37 and Positive GBS test B95.1 [place] [address] 87830- 2950 Mar, care in third trimester Z34.93 ; 36 weeks gestation of Z3A.36 and Yeast infection B37.9 [place] [address] 10833- 3989 Mar, care in third trimester Z34.93 and 35 weeks gestation of Z3A.35 [place] [address] 75947- 2052 Feb, 33 weeks gestation of Z3A.33 and Third trimester Z34.93 [place] [address] 46132- 7877 Feb, Dental examination Z01.20 [place] [address] 92477- 8178 Feb, care in third trimester Z34.93 ; Encounter for immunization Z23 and 31 weeks gestation of Z3A.31 [place] [address] 18565- 6229 January, Third trimester Z34.93 ; 29 weeks gestation of Z3A.29 and Abnormal obstetric ultrasound scan O28.[address] 41113- 2608 January, Normal first in second trimester Z34.02 and 25 weeks gestation of Z3A.25 [place] [address] [place] [address] 02298- 4154 Dec, Dental examination Z01.20 and Dental caries K02.9 [place] [address] [place] [id number] [place] [address] 51412- 1492 Dec, [place] [address] [place] [id number] [place] [address] 71378- 9182 Nov, Screening for deficiency anemia Z13.0 [place] [address] [place] [id number] [place] [address] 01629- 0369 Nov, [place] [address] [place] [id number] [place] [address] 39521- 1409 Nov, Normal first in second trimester Z34.02 ; 20 weeks gestation of Z3A.20 and High risk teen in second trimester O09.892 [place] [address] [place] [id number] [place] [address] 12585- 2196 Nov, [place] [address] [place] [id number] [place] [address] 64409- 7505 Nov, 16 weeks gestation of Z3A.16 ; Low lying placenta NOS or without hemorrhage, second trimester O44.42 ; High risk teen in second trimester O09.892 and Second trimester Z34.92 [place] [address] [place] [id number] [place] [address] 56884- 9787 Sep, Normal , first Z34.00 ; 12 weeks gestation of Z3A.12 and High risk teen in second trimester O09.892 [place] [address] [place] [id number] [place] [address] 72476- 3062 Sep, [place] [address] [place] [id number] [place] [address] 41725- 4199 Sep, Encounter for test, result unknown Z32.00 IMMUNIZATIONS No Known Immunizations SOCIAL HISTORY Never Assessed REASON FOR VISIT OB- -- héctor little, patient states she would lik to start BC pills PLAN OF CARE Activity Details Follow Up 4 Weeks with Sebas johnson depression Reason: VITAL SIGNS Height 66 in 2018-06-20 Weight 125.6 lbs 2018-06-20 Temperature 98.0 degrees Fahrenheit 2018-06-20 Heart Rate 70 bpm 2018-06-20 Respiratory Rate 18 2018-06-20 BMI 20.27 kg/m2 2018-06-20 Blood pressure systolic 110 mmHg 2018-06-20 Blood pressure diastolic 68 mmHg 2018-06-20 MEDICATIONS Medication Instructions Dosage Frequency Start Date End Date Duration Status Macrobid 100 mg Orally every 12 hrs 1 capsule with food 12h Jun, Jun, 7 day(s) Active Ortho Tri-Cyclen (28) 0.18/0.215/0.25 MG-35 MCG Orally Once a day 1 tablet 24h Jun, 28 day(s) Active RESULTS No Results PROCEDURES Procedure Date Ordered Result Body Site URINE TEST Jun 20, 2018 URINE CULTURE/COLONY COUNT Jun 20, 2018 URINALYSIS, AUTO, W/O SCOPE Jun 20, 2018 INSTRUCTIONS MEDICATIONS ADMINISTERED No Known Medications MEDICAL (GENERAL) HISTORY Type Description Date Medical History - April 2018 Surgical History Appendectomy 2011 Surgical History Tonsilectomy 2012 Hospitalization History Surgery
--- OUTSIDE RECORDS SUMMARY | 2018-09-23 22:44 | XMS REPORT ---
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 [place] [address] 45425- 6478 Jun, 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 [place] [address] [place] [id number] [place] [address] 43823- 1869 Jun, control counseling Z30.09 [place] [address] 78413- 2928 Jun, Encounter for visit Z39.2 ; 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 ; control counseling Z30.09 and Urinary tract infection without hematuria, site unspecified N39.0 [facility] [address] 48248- 6295 May, [place] [address] 66904- 1395 Apr, Post-term , 40-42 weeks of gestation O48.0 and Decreased movements in third trimester, single or unspecified fetus O36.8130 [place] [address] [place] [id number] [place] [address] 82605- 2190 13 Apr, 2018 40 weeks gestation of Z3A.40 ; Third trimester Z34.93 and Positive GBS test B95.1 [place] [address] [place] [id number] [place] [address] 30509- 5518 09 Apr, 2018 39 weeks gestation of Z3A.39 and Third trimester Z34.93 [facility] [address] [place] [id number] [place] [address] [phone] 07 Apr, 2018 Dental examination Z01.20 [place] [address] 16482- 5364 02 Apr, 2018 38 weeks gestation of Z3A.38 ; Third trimester Z34.93 and Positive GBS test B95.1 [place] [address] [place] [id number] [place] [address] 09265- 9405 Mar, Third trimester Z34.93 ; 37 weeks gestation of Z3A.37 and Positive GBS test B95.1 [place] [address] [place] [id number] [place] [address] 14301- 0497 Mar, care in third trimester Z34.93 ; 36 weeks gestation of Z3A.36 and Yeast infection B37.9 [place] [address] [place] [id number] [place] [address] 02844- 0451 Mar, care in third trimester Z34.93 and 35 weeks gestation of Z3A.35 [place] [address] [place] [id number] [place] [address] 43192- 8835 Feb, 33 weeks gestation of Z3A.33 and Third trimester Z34.93 [place] [address] [place] [id number] [place] [address] 19199- 1299 Feb, Dental examination Z01.20 [place] [address] [place] [id number] [place] [address] 08906- 5515 13 Feb, 2018 care in third trimester Z34.93 ; Encounter for immunization Z23 and 31 weeks gestation of Z3A.31 [place] [address] 57241- 4449 January, Third trimester Z34.93 ; 29 weeks gestation of Z3A.29 and Abnormal obstetric ultrasound scan O28.3 [place] [address] 11378- 6155 January, Normal first in second trimester Z34.02 and 25 weeks gestation of Z3A.25 [place] [address] 11901- 4296 Dec, Dental examination Z01.20 and Dental caries K02.9 [place] [address] 83819- 5842 Dec, [place] [address] 91117- 4037 Nov, Screening for deficiency anemia Z13.0 [place] [address] 45388- 7343 Nov, [place] [address] 37270- 6269 Nov, Normal first in second trimester Z34.02 ; 20 weeks gestation of Z3A.20 and High risk teen in second trimester O09.892 [place] [address] [place] [id number] [place] [address] 34387- 2268 Nov, [place] [address] 08469- 1367 Nov, 16 weeks gestation of Z3A.16 ; Low lying placenta NOS or without hemorrhage, second trimester O44.42 ; High risk teen in second trimester O09.892 and Second trimester Z34.92 [place] [address] [place] [id number] [place] [address] 81193- 1434 Sep, Normal , first Z34.00 ; 12 weeks gestation of Z3A.12 and High risk teen in second trimester O09.892 [facility] [address] [facility] [id number] [place] [address]- 7904 Sep, [facility] [address] [facility] [id number] [place] [address]- 7354 Sep, Encounter for test, result unknown Z32.00 IMMUNIZATIONS No Known Immunizations SOCIAL HISTORY Never Assessed REASON FOR VISIT post depression fu -- héctor little PLAN OF CARE Activity Details Follow Up 4 Weeks with Sebas MARSH Reason: VITAL SIGNS Height 66 in 2018-07-10 Weight 125.0 lbs 2018-07-10 Temperature 98.0 degrees Fahrenheit 2018-07-10 Heart Rate 76 bpm 2018-07-10 Respiratory Rate 18 2018-07-10 BMI 20.17 kg/m2 2018-07-10 Blood pressure systolic 100 mmHg 2018-07-10 Blood pressure diastolic 68 mmHg 2018-07-10 MEDICATIONS Medication Instructions Dosage Frequency Start Date End Date Duration Status Zoloft 25 MG Orally Once a day 1/2 tab x 6 days then 1 tablet 24h Jun, 30 day(s) Active Ortho Micronor 0.35 MG Orally Once a day 1 tablet 24h Jun, 28 days Not-Taking RESULTS No Results PROCEDURES No Known procedures INSTRUCTIONS MEDICATIONS ADMINISTERED No Known Medications MEDICAL (GENERAL) HISTORY Type Description Date Medical History - April 2018 Surgical History Appendectomy 2011 Surgical History Tonsilectomy 2012 Hospitalization History Surgery
--- OUTSIDE RECORDS SUMMARY | 2018-09-23 22:44 | XMS REPORT ---
Author Author KE CHAMBERS Organization [facility] Address [address] [place] [address] Care Team Providers Care Skate Maker Name Role Phone KE CHAMBERS Unavailable PROBLEMS Type Condition ICD9-CM Code NUJ93-UC Code Onset Dates Condition Status SNOMED Code Problem Dental caries K02.9 Active 30342143 ALLERGIES No Information ENCOUNTERS Encounter Location Date Diagnosis [facility] [address] 02972- 3297 Jul, [place] [address] 73724- 3481 Jun, 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 [address] 80351- 5766 May, [place] [address] [place] [id number] [place] [address] 17642- 8409 Apr, Post-term , 40-42 weeks of gestation O48.0 and Decreased movements in third trimester, single or unspecified fetus O36.8130 [place] [address] [place] [address] 73735- 6208 13 Apr, 2018 40 weeks gestation of Z3A.40 ; Third trimester Z34.93 and Positive GBS test B95.1 [place] [address] [place] [id number] [place] [address] 78807- 8914 09 Apr, 2018 39 weeks gestation of Z3A.39 and Third trimester Z34.93 [facility] [address] [place] [id number] [place] [address] [id number] 07 Apr, 2018 Dental examination Z01.20 [place] [address] 40575- 0050 02 Apr, 2018 38 weeks gestation of Z3A.38 ; Third trimester Z34.93 and Positive GBS test B95.1 [place] [address] [place] [id number] [place] [address] 77980- 1806 Mar, Third trimester Z34.93 ; 37 weeks gestation of Z3A.37 and Positive GBS test B95.1 [place] [address] [place] [id number] [place] [address] 09251- 0918 Mar, care in third trimester Z34.93 ; 36 weeks gestation of Z3A.36 and Yeast infection B37.9 [place] [address] [place] [id number] [place] [address] 06776- 2989 Mar, care in third trimester Z34.93 and 35 weeks gestation of Z3A.35 [place] [address] [place] [id number] [place] [address] 38129- 8564 Feb, 33 weeks gestation of Z3A.33 and Third trimester Z34.93 [place] [address] [place] [id number] [place] [address] 45776- 6218 Feb, Dental examination Z01.20 [place] [address] [place] [id number] [place] [address] 06203- 9763 13 Feb, 2018 care in third trimester Z34.93 ; Encounter for immunization Z23 and 31 weeks gestation of Z3A.31 [place] [address] [place] [id number] [place] [address] 39611- 8643 January, Third trimester Z34.93 ; 29 weeks gestation of Z3A.29 and Abnormal obstetric ultrasound scan O28.3 [place] [address] [place] [id number] [place] [address] 81989- 7708 January, Normal first in second trimester Z34.02 and 25 weeks gestation of Z3A.25 [place] [address] 05103- 1352 Dec, Dental examination Z01.20 and Dental caries K02.9 [place] [address] 36352- 7112 Dec, [place] [address] 93391- 4209 Nov, Screening for deficiency anemia Z13.0 [place] [address] 07208- 9308 Nov, [place] [address] 22608- 2294 Nov, Normal first in second trimester Z34.02 ; 20 weeks gestation of Z3A.20 and High risk teen in second trimester O09.892 [place] [address] [place] [id number] [place] [address] 64648- 2835 Nov, [place] [address] [place] [id number] [place] [address] 02989- 5905 Nov, 16 weeks gestation of Z3A.16 ; Low lying placenta NOS or without hemorrhage, second trimester O44.42 ; High risk teen in second trimester O09.892 and Second trimester Z34.92 [place] [address] [place] [id number] [place] [address] 30266- 7814 Sep, Normal , first Z34.00 ; 12 weeks gestation of Z3A.12 and High risk teen in second trimester O09.892 [facility] [address] [facility] [id number] [address]- [address] Sep, [facility] [address] [facility] [id number] [phone]- [address] Sep, Encounter for test, result unknown Z32.00 IMMUNIZATIONS No Known Immunizations SOCIAL HISTORY Never Assessed REASON FOR VISIT Medication question PLAN OF CARE VITAL SIGNS MEDICATIONS Medication Instructions Dosage Frequency Start Date End Date Duration Status Ortho Micronor 0.35 MG Orally Once a day 1 tablet 24h Jun, 28 days Active Zoloft 25 MG Orally Once a day 1/2 tab x 6 days then 1 tablet 24h Jun, 30 day(s) Active RESULTS No Results PROCEDURES No Known procedures INSTRUCTIONS MEDICATIONS ADMINISTERED No Known Medications MEDICAL (GENERAL) HISTORY Type Description Date Medical History - April 2018 Surgical History Appendectomy 2011 Surgical History Tonsilectomy 2012 Hospitalization History Surgery
--- OUTSIDE RECORDS SUMMARY | 2018-09-23 22:45 | XMS REPORT ---
Author Author KE CHAMBERS Organization [facility] Address [address] [place] [address] Care Team Providers Care Boilermaker Assembly And Erection Name Role Phone KE CHAMBERS Unavailable PROBLEMS Type Condition ICD9-CM Code MLA29-VD Code Onset Dates Condition Status SNOMED Code Problem Dental caries K02.9 Active 47569684 ALLERGIES No Information ENCOUNTERS Encounter Location Date Diagnosis [facility] [address] [place] [id number] [place] [address] 27627- 9235 Jun, [place] [address] [address]- [address] Apr, Post-term , 40-42 weeks of gestation O48.0 and Decreased movements in third trimester, single or unspecified fetus O36.8130 [facility] [id number] [place] [address] 92223- 5386 Apr, 40 weeks gestation of Z3A.40 ; Third trimester Z34.93 and Positive GBS test B95.1 [place] [address] [id number] [place] [address] 79103- 6353 Apr, 39 weeks gestation of Z3A.39 and Third trimester Z34.93 [facility] [id number] [place] [address] [id number] Apr, Dental examination Z01.20 [facility] [id number] [place] [address] 17657- 4913 Apr, 38 weeks gestation of Z3A.38 ; Third trimester Z34.93 and Positive GBS test B95.1 [place] [address] [place] [address] [id number] [place] [address] 94607- 0962 Mar, Third trimester Z34.93 ; 37 weeks gestation of Z3A.37 and Positive GBS test B95.1 [place] [address] 31816- 5646 Mar, care in third trimester Z34.93 ; 36 weeks gestation of Z3A.36 and Yeast infection B37.9 [place] [address] 50010- 1548 Mar, care in third trimester Z34.93 and 35 weeks gestation of Z3A.35 [place] [address] 35720- 9679 Feb, 33 weeks gestation of Z3A.33 and Third trimester Z34.93 [place] [address] 70596- 1230 Feb, Dental examination Z01.20 [place] [address] 56289- 4743 Feb, care in third trimester Z34.93 ; Encounter for immunization Z23 and 31 weeks gestation of Z3A.31 [place] [address] 70219- 3546 January, Third trimester Z34.93 ; 29 weeks gestation of Z3A.29 and Abnormal obstetric ultrasound scan O28.[address] 27631- 0753 January, Normal first in second trimester Z34.02 and 25 weeks gestation of Z3A.25 [place] [address] 58476- 2956 Dec, Dental examination Z01.20 and Dental caries K02.9 [place] [address] 70006- 9352 Dec, [place] [address] 72609- 1071 Nov, Screening for deficiency anemia Z13.0 [place] [address] [address] 96[address] Nov, [place] [address] [place] [address] 28632- 0996 Nov, Normal first in second trimester Z34.02 ; 20 weeks gestation of Z3A.20 and High risk teen in second trimester O09.892 [place] [address] [address] [id number] [place] [address] 60923- 7020 Nov, [place] [address] [place] [address] 48169- 0528 Nov, 16 weeks gestation of Z3A.16 ; Low lying placenta NOS or without hemorrhage, second trimester O44.42 ; High risk teen in second trimester O09.892 and Second trimester Z34.92 [place] [address] [place] [address] 18569- 2742 Sep, Normal , first Z34.00 ; 12 weeks gestation of Z3A.12 and High risk teen in second trimester O09.892 [place] [address] [address] 6793 Sep, [place] [address] [place] [address] 23283- 9617 Sep, Encounter for test, result unknown Z32.00 IMMUNIZATIONS No Known Immunizations SOCIAL HISTORY Never Assessed REASON FOR VISIT NST PLAN OF CARE VITAL SIGNS MEDICATIONS Unknown Medications RESULTS Name Result Date Reference Range Biophysical Profile () w/o NST 2018-05-03 PROCEDURES Procedure Date Ordered Result Body Site NON-STRESS TEST 2018-05-03 N/A NON-STRESS TEST May 03, 2018 INSTRUCTIONS MEDICATIONS ADMINISTERED No Known Medications MEDICAL (GENERAL) HISTORY Type Description Date Medical History - April 2018 Surgical History Appendectomy 2012 Surgical History Tonsilectomy 2012 Hospitalization History Surgery
--- OUTSIDE RECORDS SUMMARY | 2018-09-23 22:45 | XMS REPORT ---
Author Author TARAH ALAS [facility] Address [address] [place] [address] Care Team Providers Care Roofer Vinyl Coating Name Role Phone TARAH ALAS Unavailable PROBLEMS Type Condition ICD9-CM Code GYC69-TU Code Onset Dates Condition Status SNOMED Code Problem Dental caries K02.9 Active [id number] ALLERGIES No Information ENCOUNTERS Encounter Location Date Diagnosis [place] [address] [place] [id number] [place] [address] 03042- 6712 Apr, Post-term , 40-42 weeks of gestation O48.0 and Decreased movements in third trimester, single or unspecified fetus O36.8130 [place] [address] [place] [id number] [place] [address] 92298- 9024 Apr, 40 weeks gestation of Z3A.40 and Third trimester Z34.93 [place] [address] [place] [id number] [place] [address] 35099- 2181 Apr, 39 weeks gestation of Z3A.39 and Third trimester Z34.93 [facility] [address] [place] [address] [id number] Apr, Dental examination Z01.20 [place] [address] [place] [id number] [place] [address] 60468- 8752 Apr, 38 weeks gestation of Z3A.38 and Third trimester Z34.93 [place] [address] [place] [id number] [place] [address] 64383- 8346 Mar, Third trimester Z34.93 [place] [address] [place] [id number] [place] [address] 63726- 5120 Mar, care in third trimester Z34.93 ; 36 weeks gestation of Z3A.36 and Yeast infection B37.9 [place] [address] [place] [id number] [place] [address] 61747- 6789 Mar, care in third trimester Z34.93 and 35 weeks gestation of Z3A.35 [place] [address] [place] [id number] [place] [address] 87140- 4035 Feb, 33 weeks gestation of Z3A.33 [place] [address] 22765- 3507 Feb, Dental examination Z01.20 [place] [address] 19423- 8556 Feb, care in third trimester Z34.93 ; Encounter for immunization Z23 and 31 weeks gestation of Z3A.31 [place] [address] 64754- 0584 January, Third trimester Z34.93 ; 29 weeks gestation of Z3A.29 and Abnormal obstetric ultrasound scan O28.3 [place] [address] [place] [id number] [place] [address] 26624- 0217 January, Normal first in second trimester Z34.02 and 25 weeks gestation of Z3A.25 [place] [address] [place] [id number] [place] [address] 13098- 0078 Dec, Dental examination Z01.20 and Dental caries K02.9 [place] [address] [place] [id number] [place] [address] 19611- 6256 Dec, [place] [address] [place] [id number] [place] [address] 16631- 1570 Nov, Screening for deficiency anemia Z13.0 [place] [address] 08578- 6217 Nov, [place] [address] [place] [id number] [place] [address] 06721- 7333 Nov, Normal first in second trimester Z34.02 ; 20 weeks gestation of Z3A.20 and High risk teen in second trimester O09.892 [place] [address] [address] 6[address] 08 Nov, 2017 [place] [address] [place] [address] 59154236- 7423 Nov, 16 weeks gestation of Z3A.16 ; Low lying placenta NOS or without hemorrhage, second trimester O44.42 ; High risk teen in second trimester O09.892 and Second trimester Z34.92 [place] [address] [place] [address] [id number] [place] [address] 70586- 9934 Sep, Normal , first Z34.00 ; 12 weeks gestation of Z3A.12 and High risk teen in second trimester O09.892 [place] [address] [address]- 8746 Sep, [place] [address] [place] [id number] [place] [address] 03702- 4525 Sep, Encounter for test, result unknown Z32.00 IMMUNIZATIONS No Known Immunizations SOCIAL HISTORY Never Assessed REASON FOR VISIT PLAN OF CARE Activity Details Follow Up prn Reason: VITAL SIGNS MEDICATIONS Unknown Medications RESULTS No Results PROCEDURES Procedure Date Ordered Result Body Site SCREENING OF A PATIENT March 19, 2018 Billing Notes on claim March 13, 2018 INSTRUCTIONS MEDICATIONS ADMINISTERED No Known Medications MEDICAL (GENERAL) HISTORY Type Description Date Medical History - April 2018 Surgical History Appendectomy 2011 Surgical History Tonsilectomy 2012 Hospitalization History Surgery
--- OUTSIDE RECORDS SUMMARY | 2018-09-23 22:45 | XMS REPORT ---
Author Author KE CHAMBERS Organization [facility] Address [address] [place] [address] Care Team Providers Care Cement Loader Name Role Phone KE CHAMBERS Unavailable PROBLEMS Type Condition ICD9-CM Code YXF64-LR Code Onset Dates Condition Status SNOMED Code Problem Dental caries K02.9 Active [id number] ALLERGIES No Information ENCOUNTERS Encounter Location Date Diagnosis [facility] [address] [address]- [address] Jun, [place] [address] 50760- 8895 Apr, Post-term , 40-42 weeks of gestation O48.0 and Decreased movements in third trimester, single or unspecified fetus O36.8130 [facility] [address] [id number] [place] [address] 71670- 2025 Apr, 40 weeks gestation of Z3A.40 ; Third trimester Z34.93 and Positive GBS test B95.1 [place] [address] [address] [id number] [place] [address] 03932- 2926 Apr, 39 weeks gestation of Z3A.39 and Third trimester Z34.93 [facility] [id number] [place] [address] [id number] Apr, Dental examination Z01.20 [place] [address] 35947- 6249 Apr, 38 weeks gestation of Z3A.38 ; Third trimester Z34.93 and Positive GBS test B95.1 [place] [address] [place] [id number] [place] [address] 10033- 4304 Mar, Third trimester Z34.93 ; 37 weeks gestation of Z3A.37 and Positive GBS test B95.1 [place] [address] 49194- 1751 Mar, care in third trimester Z34.93 ; 36 weeks gestation of Z3A.36 and Yeast infection B37.9 [place] [address] 55830- 0691 Mar, care in third trimester Z34.93 and 35 weeks gestation of Z3A.35 [place] [address] 86186- 6457 Feb, 33 weeks gestation of Z3A.33 and Third trimester Z34.93 [place] [address] 28729- 7631 Feb, Dental examination Z01.20 [place] [address] 25136- 1836 Feb, care in third trimester Z34.93 ; Encounter for immunization Z23 and 31 weeks gestation of Z3A.31 [place] [address] 70877- 6778 January, Third trimester Z34.93 ; 29 weeks gestation of Z3A.29 and Abnormal obstetric ultrasound scan O28.[address] 95619- 2164 January, Normal first in second trimester Z34.02 and 25 weeks gestation of Z3A.25 [place] [address] 74914- 8366 Dec, Dental examination Z01.20 and Dental caries K02.9 [place] [address] 53182- 4357 Dec, [place] [address] 15853- 2218 Nov, Screening for deficiency anemia Z13.0 [place] [address], [place] [address]- 98[address] Nov, [place] [address] [place] [id number] [place] [address] 35527- 7387 Nov, Normal first in second trimester Z34.02 ; 20 weeks gestation of Z3A.20 and High risk teen in second trimester O09.892 [place] [address] [id number] [place] [address] 31779- 7192 Nov, [place] [address] [place] [id number] [place] [address] 07805- 5065 Nov, 16 weeks gestation of Z3A.16 ; Low lying placenta NOS or without hemorrhage, second trimester O44.42 ; High risk teen in second trimester O09.892 and Second trimester Z34.92 [place] [address] [id number] [place] [address] 52700- 2579 Sep, Normal , first Z34.00 ; 12 weeks gestation of Z3A.12 and High risk teen in second trimester O09.892 [place] [address] [place] [id number] [place] [address] 88995- 2004 Sep, [place] [address] [place] [id number] [place] [address] 26548- 8585 Sep, Encounter for test, result unknown Z32.00 IMMUNIZATIONS No Known Immunizations SOCIAL HISTORY Never Assessed REASON FOR VISIT OB f/u 1 week -- héctor little PLAN OF CARE Activity Details Follow Up 1 Week Reason: VITAL SIGNS Height 66 in 2018-04-25 Weight 157.0 lbs 2018-04-25 Temperature 98.0 degrees Fahrenheit 2018-04-25 Heart Rate 86 bpm 2018-04-25 Respiratory Rate 18 2018-04-25 BMI 25.34 kg/m2 2018-04-25 Blood pressure systolic 130 mmHg 2018-04-25 Blood pressure diastolic 86 mmHg 2018-04-25 MEDICATIONS Medication Instructions Dosage Frequency Start Date End Date Duration Status Complete 14-0.4 MG Orally Once a day 1 tablet 24h Active RESULTS Name Result Date Reference Range UA OB DIP (IN HOUSE) 2018-04-25 Glucose neg Protein neg PROCEDURES Procedure Date Ordered Result Body Site URINE-NO MICRO Apr 25, 2018 INSTRUCTIONS MEDICATIONS ADMINISTERED No Known Medications MEDICAL (GENERAL) HISTORY Type Description Date Medical History - April 2018 Surgical History Appendectomy 2011 Surgical History Tonsilectomy 2012 Hospitalization History Surgery
--- OUTSIDE RECORDS SUMMARY | 2018-09-23 22:45 | XMS REPORT ---
Author Author KE CHAMBERS Organization [facility] Address [address] [place] [address] Care Team Providers Care Senior Java Engineer Name Role Phone KE CHAMBERS Unavailable PROBLEMS Type Condition ICD9-CM Code VNU58-LC Code Onset Dates Condition Status SNOMED Code Problem Dental caries K02.9 Active [id number] ALLERGIES No Information ENCOUNTERS Encounter Location Date Diagnosis [facility] [address] 23856- 9293 Jun, [place] [address] 97618- 7008 Apr, Post-term , 40-42 weeks of gestation O48.0 and Decreased movements in third trimester, single or unspecified fetus O36.8130 [facility] [id number] [place] [address] 92665- 7235 Apr, 40 weeks gestation of Z3A.40 ; Third trimester Z34.93 and Positive GBS test B95.1 [place] [address] [place] [id number] [place] [address] 26609- 6472 Apr, 39 weeks gestation of Z3A.39 and Third trimester Z34.93 [facility] [id number] [place] [address] [id number] Apr, Dental examination Z01.20 [place] [address] 12321- 3853 Apr, 38 weeks gestation of Z3A.38 ; Third trimester Z34.93 and Positive GBS test B95.1 [place] [address] [place] [id number] [place] [address] 96221- 9308 Mar, Third trimester Z34.93 ; 37 weeks gestation of Z3A.37 and Positive GBS test B95.1 [place] [address] 01796- 1019 Mar, care in third trimester Z34.93 ; 36 weeks gestation of Z3A.36 and Yeast infection B37.9 [place] [address] 54756- 8568 Mar, care in third trimester Z34.93 and 35 weeks gestation of Z3A.35 [place] [address] 13875- 5684 Feb, 33 weeks gestation of Z3A.33 and Third trimester Z34.93 [place] [address] 40348- 6431 Feb, Dental examination Z01.20 [place] [address] 17478- 1875 Feb, care in third trimester Z34.93 ; Encounter for immunization Z23 and 31 weeks gestation of Z3A.31 [place] [address] 15832- 5428 January, Third trimester Z34.93 ; 29 weeks gestation of Z3A.29 and Abnormal obstetric ultrasound scan O28.[address] 61993- 7672 January, Normal first in second trimester Z34.02 and 25 weeks gestation of Z3A.25 [place] [address] 44268- 6992 Dec, Dental examination Z01.20 and Dental caries K02.9 [place] [address] 92457- 2596 Dec, [place] [address] 22923- 5061 Nov, Screening for deficiency anemia Z13.0 [place] [address], [place] [address]- 8972 Nov, [place] [address] [place] [id number] [place] [address] 40405- 0427 Nov, Normal first in second trimester Z34.02 ; 20 weeks gestation of Z3A.20 and High risk teen in second trimester O09.892 [place] [address] [place] [id number] [place] [address] 83201- 2496 Nov, [place] [address] [place] [id number] [place] [address] 66170- 8739 Nov, 16 weeks gestation of Z3A.16 ; Low lying placenta NOS or without hemorrhage, second trimester O44.42 ; High risk teen in second trimester O09.892 and Second trimester Z34.92 [place] [address] [place] [id number] [place] [address] 29316- 4959 Sep, Normal , first Z34.00 ; 12 weeks gestation of Z3A.12 and High risk teen in second trimester O09.892 [place] [address] [place] [id number] [place] [address] 72713- 8567 Sep, [place] [address] [place] [id number] [place] [address] 73059- 9007 Sep, Encounter for test, result unknown Z32.00 IMMUNIZATIONS Vaccine Route Administration Date Status TDAP (BOOSTRIX) IM Intramuscular February 27, 2018 Administered SOCIAL HISTORY Never Assessed REASON FOR VISIT OB 2wk f/u -- héctor little PLAN OF CARE Activity Details Follow Up 2 Weeks Reason: Pending Test UA OB DIP (IN HOUSE) VITAL SIGNS Height 66 in 2018-02-27 Weight 143.8 lbs 2018-02-27 Temperature 98.1 degrees Fahrenheit 2018-02-27 Heart Rate 78 bpm 2018-02-27 Respiratory Rate 18 2018-02-27 BMI 23.21 kg/m2 2018-02-27 Blood pressure systolic 120 mmHg 2018-02-27 Blood pressure diastolic 70 mmHg 2018-02-27 MEDICATIONS Medication Instructions Dosage Frequency Start Date End Date Duration Status Complete 14-0.4 MG Orally Once a day 1 tablet 24h Active RESULTS No Results PROCEDURES Procedure Date Ordered Result Body Site URINE-NO MICRO February 27, 2018 TDAP (BOOSTRIX) February 27, 2018 SINGLE IMMUNIZATION ADMIN February 27, 2018 INSTRUCTIONS MEDICATIONS ADMINISTERED No Known Medications MEDICAL (GENERAL) HISTORY Type Description Date Medical History - April 2018 Surgical History Appendectomy 2011 Surgical History Tonsilectomy 2012 Hospitalization History Surgery
--- OUTSIDE RECORDS SUMMARY | 2018-09-23 22:45 | XMS REPORT ---
Author Author BERNARDOKOBE TUCKER Mignon [facility] Address Unknown Care Team Providers Care Carpet Cleaning Technician Name Role Phone KOBE SEARS Unavailable PROBLEMS Type Condition ICD9-CM Code QOO68-TS Code Onset Dates Condition Status SNOMED Code Problem Dental caries K02.9 Active [id number] ALLERGIES No Known Allergies ENCOUNTERS Encounter Location Date Diagnosis [place] [address] [address]- 8652 Jun, [place] [address] [place] [id number] [place] [address] 41028- 4410 Apr, Post-term , 40-42 weeks of gestation O48.0 and Decreased movements in third trimester, single or unspecified fetus O36.8130 [place] [address] [place] [id number] [place] [address] 48185- 9026 Apr, 40 weeks gestation of Z3A.40 ; Third trimester Z34.93 and Positive GBS test B95.1 [place] [address] [place] [id number] [place] [address] 32311- 3534 09 Apr, 2018 39 weeks gestation of Z3A.39 and Third trimester Z34.93 [facility] [id number] [place] [address] [id number] Apr, Dental examination Z01.20 [place] [address] [place] [id number] [place] [address] 99485- 4779 Apr, 38 weeks gestation of Z3A.38 ; Third trimester Z34.93 and Positive GBS test B95.1 [place] [address] [place] [id number] [place] [address] 38774- 0906 Mar, Third trimester Z34.93 ; 37 weeks gestation of Z3A.37 and Positive GBS test B95.1 [place] [address] [place] [id number] [place] [address] 61290- 6534 Mar, care in third trimester Z34.93 ; 36 weeks gestation of Z3A.36 and Yeast infection B37.9 [place] [address] [place] [id number] [place] [address] 53196- 0766 Mar, care in third trimester Z34.93 and 35 weeks gestation of Z3A.35 [place] [address] 45026- 9290 Feb, 33 weeks gestation of Z3A.33 and Third trimester Z34.93 [place] [address] 87024- 2976 Feb, Dental examination Z01.[address] 60701- 2028 Feb, care in third trimester Z34.93 ; Encounter for immunization Z23 and 31 weeks gestation of Z3A.31 [place] [address] 69283- 7095 January, Third trimester Z34.93 ; 29 weeks gestation of Z3A.29 and Abnormal obstetric ultrasound scan O28.3 [place] [address] 45372- 4087 January, Normal first in second trimester Z34.02 and 25 weeks gestation of Z3A.25 [place] [address] [place] [id number] [place] [address] 59581- 7975 Dec, Dental examination Z01.20 and Dental caries K02.[address] 30675- 2276 Dec, [place] [address] 59437- 9481 Nov, Screening for deficiency anemia Z13.0 [place] [address] [place] [address]- 4515 Nov, [place] [address] [place] [address] 21737- 9507 Nov, Normal first in second trimester Z34.02 ; 20 weeks gestation of Z3A.20 and High risk teen in second trimester O09.892 [place] [address] [place] [address] 79652- 0084 Nov, [place] [address] [place] [id number] [place] [address] 76502- 7306 Nov, 16 weeks gestation of Z3A.16 ; Low lying placenta NOS or without hemorrhage, second trimester O44.42 ; High risk teen in second trimester O09.892 and Second trimester Z34.92 [place] [address] [place] [address] 60882- 5846 Sep, Normal , first Z34.00 ; 12 weeks gestation of Z3A.12 and High risk teen in second trimester O09.892 [place] [address] [place] [id number] [place] [address] 11677- 6066 Sep, [place] [address] [place] [id number] [place] [address] 85483- 7754 Sep, Encounter for test, result unknown Z32.00 IMMUNIZATIONS No Known Immunizations SOCIAL HISTORY Never Assessed REASON FOR VISIT stephany PLAN OF CARE Activity Details Follow Up prn Reason:recall VITAL SIGNS MEDICATIONS Medication Instructions Dosage Frequency Start Date End Date Duration Status Complete 14-0.4 MG Orally Once a day 1 tablet 24h Active RESULTS No Results PROCEDURES Procedure Date Ordered Result Body Site COMP ORAL EVALUATION - NEW/EST PT Apr 23, 2018 INSTRUCTIONS MEDICATIONS ADMINISTERED No Known Medications MEDICAL (GENERAL) HISTORY Type Description Date Medical History - April 2018 Surgical History Appendectomy 2011 Surgical History Tonsilectomy 2012 Hospitalization History Surgery
--- OUTSIDE RECORDS SUMMARY | 2018-09-23 22:45 | XMS REPORT ---
Author Author KE CHAMBERS Organization [facility] [place] Address [address] [place] [address] Care Team Providers Care Event Attendant Name Role Phone KE CHAMBERS Unavailable PROBLEMS Type Condition ICD9-CM Code NSV56-DE Code Onset Dates Condition Status SNOMED Code Problem Dental caries K02.9 Active 18562965 ALLERGIES No Known Allergies ENCOUNTERS Encounter Location Date Diagnosis [facility] [place] [id number] [place] [address] 70781- 0194 Jun, [facility] [place] [id number] [place] [address] 13449- 1985 Jun, [facility] [place] [address] 96853- 6556 May, [facility] [place] [id number] [place] [address] 01281- 9119 Apr, Post-term , 40-42 weeks of gestation O48.0 and Decreased movements in third trimester, single or unspecified fetus O36.8130 [facility] [place] [id number] [place] [address] 93587- 5959 Apr, 40 weeks gestation of Z3A.40 ; Third trimester Z34.93 and Positive GBS test B95.1 [facility] [place] [id number] [place] [address] 95011- 3645 Apr, 39 weeks gestation of Z3A.39 and Third trimester Z34.93 [facility] [id number] [place] [address] [id number] Apr, Dental examination Z01.20 [facility] [place] [id number] [place] [address] 54838- 5073 Apr, 38 weeks gestation of Z3A.38 ; Third trimester Z34.93 and Positive GBS test B95.1 [place] [id number] [place] [address] 57481- 8709 Mar, Third trimester Z34.93 ; 37 weeks gestation of Z3A.37 and Positive GBS test B95.1 [place] [id number] [place] [address] 91220- 5419 Mar, care in third trimester Z34.93 ; 36 weeks gestation of Z3A.36 and Yeast infection B37.9 [place] [id number] [place] [address] 61983- 7485 Mar, care in third trimester Z34.93 and 35 weeks gestation of Z3A.35 [place] [id number] [place] [address] 08360- 9941 Feb, 33 weeks gestation of Z3A.33 and Third trimester Z34.93 [place] [id number] [place] [address] 16968- 9860 Feb, Dental examination Z01.20 [place] [address] 51212- 6878 Feb, care in third trimester Z34.93 ; Encounter for immunization Z23 and 31 weeks gestation of Z3A.31 [place] [id number] [place] [address] 26890- 1261 January, Third trimester Z34.93 ; 29 weeks gestation of Z3A.29 and Abnormal obstetric ultrasound scan O28.3 [place] [id number] [place] [address] 69405- 2002 January, Normal first in second trimester Z34.02 and 25 weeks gestation of Z3A.25 [place] [id number] [place] [address] 30746- 2888 Dec, Dental examination Z01.20 and Dental caries K02.9 [place] [address] [place] [id number] [place] [address] 25670- 2460 Dec, [place] [id number] [place] [address] 78573- 5800 Nov, Screening for deficiency anemia Z13.0 [place] [id number] [place] [address] 39410- 2787 Nov, [place] [address] 68028- 1062 Nov, Normal first in second trimester Z34.02 ; 20 weeks gestation of Z3A.20 and High risk teen in second trimester O09.892 [place] [id number] [place] [address] 73976- 6858 Nov, [place] [id number] [place] [address] 90926- 2702 Nov, 16 weeks gestation of Z3A.16 ; Low lying placenta NOS or without hemorrhage, second trimester O44.42 ; High risk teen in second trimester O09.892 and Second trimester Z34.92 [place] [id number] [place] [address] 10547- 4931 Sep, Normal , first Z34.00 ; 12 weeks gestation of Z3A.12 and High risk teen in second trimester O09.892 [place] [id number] [place] [address] 34052- 9924 Sep, [place] [id number] [place] [address] 62637- 8064 Sep, Encounter for test, result unknown Z32.00 IMMUNIZATIONS No Known Immunizations SOCIAL HISTORY Never Assessed REASON FOR VISIT OB 2wk f/u: no concerns voiced ronnie juan PLAN OF CARE Activity Details Follow Up 2 Weeks Reason: VITAL SIGNS Height 66 in 2018-03-13 Weight 145.2 lbs 2018-03-13 Temperature 98.2 degrees Fahrenheit 2018-03-13 Heart Rate 78 bpm 2018-03-13 Respiratory Rate 20 2018-03-13 BMI 23.436 kg/m2 2018-03-13 Blood pressure systolic 112 mmHg 2018-03-13 Blood pressure diastolic 64 mmHg 2018-03-13 MEDICATIONS Medication Instructions Dosage Frequency Start Date End Date Duration Status Complete 14-0.4 MG Orally Once a day 1 tablet 24h Active RESULTS Name Result Date Reference Range UA OB DIP (IN HOUSE) 2018-03-13 Glucose neg Protein neg PROCEDURES Procedure Date Ordered Result Body Site URINE-NO MICRO March 13, 2018 INSTRUCTIONS MEDICATIONS ADMINISTERED No Known Medications MEDICAL (GENERAL) HISTORY Type Description Date Medical History - April 2018 Surgical History Appendectomy 2011 Surgical History Tonsilectomy 2012 Hospitalization History Surgery
--- OUTSIDE RECORDS SUMMARY | 2018-09-23 22:45 | XMS REPORT ---
Author Author KE CHAMBERS Organization [facility] Address [address] [place] [address] Care Team Providers Care Email Designer Name Role Phone KE CHAMBERS Unavailable PROBLEMS Type Condition ICD9-CM Code MFA13-LY Code Onset Dates Condition Status SNOMED Code Problem Dental caries K02.9 Active [id number] ALLERGIES No Information ENCOUNTERS Encounter Location Date Diagnosis [facility] [id number] [place] [address] 01934- 4998 Jun, [place] [address] 26626- 2653 Apr, Post-term , 40-42 weeks of gestation O48.0 and Decreased movements in third trimester, single or unspecified fetus O36.8130 [facility] [id number] [place] [address] 97844- 1766 Apr, 40 weeks gestation of Z3A.40 and Third trimester Z34.93 [place] [id number] [place] [address] 93545- 0149 Apr, 39 weeks gestation of Z3A.39 and Third trimester Z34.93 [facility] [id number] [place] [address] [id number] Apr, Dental examination Z01.20 [facility] [id number] [place] [address] 56922- 4085 Apr, 38 weeks gestation of Z3A.38 and Third trimester Z34.93 [place] [id number] [place] [address] 66528- 4464 Mar, Third trimester Z34.93 [place] [address] 76130- 8635 Mar, care in third trimester Z34.93 ; 36 weeks gestation of Z3A.36 and Yeast infection B37.9 [place] [address] 68010- 5621 Mar, care in third trimester Z34.93 and 35 weeks gestation of Z3A.[address] 35557- 4558 Feb, 33 weeks gestation of Z3A.[address] 01227- 5550 Feb, Dental examination Z01.[address] 79374- 6751 Feb, care in third trimester Z34.93 ; Encounter for immunization Z23 and 31 weeks gestation of Z3A.[address] 75888- 5589 January, Third trimester Z34.93 ; 29 weeks gestation of Z3A.29 and Abnormal obstetric ultrasound scan O28.[address] 29933- 0824 January, Normal first in second trimester Z34.02 and 25 weeks gestation of Z3A.[address] 94409- 2671 Dec, Dental examination Z01.20 and Dental caries K02.9 [place] [address] 03779- 5390 Dec, [address] 96953- 2593 Nov, Screening for deficiency anemia Z13.[address] 86949- 3455 Nov, [address] [place] [address] 29 Nov, 2017 Normal first in second trimester Z34.02 ; 20 weeks gestation of Z3A.20 and High risk teen in second trimester O09.892 [place] [address] [place] [address] 56704- 1653 08 Nov, 2017 [place] [id number] [place] [address] 72920- 0611 Nov, 16 weeks gestation of Z3A.16 ; Low lying placenta NOS or without hemorrhage, second trimester O44.42 ; High risk teen in second trimester O09.892 and Second trimester Z34.92 [place] [id number] [place] [address] 46937- 8256 Sep, Normal , first Z34.00 ; 12 weeks gestation of Z3A.12 and High risk teen in second trimester O09.892 [place] [id number] [place] [address] 15454- 6272 Sep, [place] [id number] [place] [address] 01531- 2810 Sep, Encounter for test, result unknown Z32.00 IMMUNIZATIONS No Known Immunizations SOCIAL HISTORY Never Assessed REASON FOR VISIT OB 1wk f/u -- héctor little PLAN OF CARE Activity Details Follow Up 1 Week Reason: VITAL SIGNS Height 66 in 2018-04-02 Weight 151.0 lbs 2018-04-02 Temperature 98.0 degrees Fahrenheit 2018-04-02 Heart Rate 70 bpm 2018-04-02 Respiratory Rate 18 2018-04-02 BMI 24.372 kg/m2 2018-04-02 Blood pressure systolic 126 mmHg 2018-04-02 Blood pressure diastolic 70 mmHg 2018-04-02 MEDICATIONS Medication Instructions Dosage Frequency Start Date End Date Duration Status Diflucan 150 MG Orally 2 doses 72 hours apart 2 tablet Mar, Mar, 03 days Active Complete 14-0.4 MG Orally Once a day 1 tablet 24h Active RESULTS No Results PROCEDURES Procedure Date Ordered Result Body Site URINE-NO MICRO April 02, 2018 LAB NOT BILLED BY [facility] April 02, 2018 INSTRUCTIONS MEDICATIONS ADMINISTERED No Known Medications MEDICAL (GENERAL) HISTORY Type Description Date Medical History - April 2018 Surgical History Appendectomy 2011 Surgical History Tonsilectomy 2012 Hospitalization History Surgery
--- OUTSIDE RECORDS SUMMARY | 2018-09-23 22:45 | XMS REPORT ---
Author Author KE CHAMBERS Organization [facility] Address [address] [place] [address] Care Team Providers Care Diesel Motor Mechanic Name Role Phone KE CHAMBERS Unavailable PROBLEMS Type Condition ICD9-CM Code WSN53-ZO Code Onset Dates Condition Status SNOMED Code Problem Dental caries K02.9 Active [id number] ALLERGIES No Information ENCOUNTERS Encounter Location Date Diagnosis [place] [address] 28807- 3082 Apr, Post-term , 40-42 weeks of gestation O48.0 and Decreased movements in third trimester, single or unspecified fetus O36.8130 [place] [address] 20454- 4745 Apr, 40 weeks gestation of Z3A.40 and Third trimester Z34.93 [place] [address] 83580- 4323 Apr, 39 weeks gestation of Z3A.39 and Third trimester Z34.93 [facility] [id number] [place] [address] [id number] Apr, Dental examination Z01.20 [place] [id number] [place] [address] 33403- 7992 Apr, 38 weeks gestation of Z3A.38 and Third trimester Z34.93 [place] [address] 35333- 8684 Mar, Third trimester Z34.93 [place] [id number] [place] [address] 53015- 8855 Mar, care in third trimester Z34.93 ; 36 weeks gestation of Z3A.36 and Yeast infection B37.9 [place] [address] [place] [address] 01550- 4348 Mar, care in third trimester Z34.93 and 35 weeks gestation of Z3A.35 [place] [id number] [place] [address] 66513- 7319 Feb, 33 weeks gestation of Z3A.33 [place] [address] 95714- 9370 Feb, Dental examination Z01.20 [place] [id number] [place] [address] 29393- 6755 Feb, care in third trimester Z34.93 ; Encounter for immunization Z23 and 31 weeks gestation of Z3A.31 [place] [id number] [place] [address] 77723- 9925 January, Third trimester Z34.93 ; 29 weeks gestation of Z3A.29 and Abnormal obstetric ultrasound scan O28.3 [place] [id number] [place] [address] 65631- 2385 January, Normal first in second trimester Z34.02 and 25 weeks gestation of Z3A.25 [place] [id number] [place] [address] 27165- 0692 Dec, Dental examination Z01.20 and Dental caries K02.9 [place] [id number] [place] [address] 41061- 3999 Dec, [place] [id number] [place] [address] 75897- 0731 Nov, Screening for deficiency anemia Z13.0 [place] [id number] [place] [address] 11671- 6274 Nov, [place] [id number] [place] [address] 14324- 2320 Nov, Normal first in second trimester Z34.02 ; 20 weeks gestation of Z3A.20 and High risk teen in second trimester O09.892 [place] [address] [address]- 5016 08 Nov, 2017 [place] [address] [place] [address] 75694- 9041 Nov, 16 weeks gestation of Z3A.16 ; Low lying placenta NOS or without hemorrhage, second trimester O44.42 ; High risk teen in second trimester O09.892 and Second trimester Z34.92 [place] [id number] [place] [address] 41519- 8084 Sep, Normal , first Z34.00 ; 12 weeks gestation of Z3A.12 and High risk teen in second trimester O09.892 [place] [address] [place] [address] 69298- 2513 Sep, [place] [id number] [place] [address] 77006- 8689 Sep, Encounter for test, result unknown Z32.00 IMMUNIZATIONS No Known Immunizations SOCIAL HISTORY Never Assessed REASON FOR VISIT OB 2wk f/u -- héctor little PLAN OF CARE Activity Details Follow Up 1 Week, 1 Week Reason: Pending Test UA OB DIP (IN HOUSE) VITAL SIGNS Height 66 in 2018-03-27 Weight 149.0 lbs 2018-03-27 Temperature 97.8 degrees Fahrenheit 2018-03-27 BMI 24.049 kg/m2 2018-03-27 Blood pressure systolic 126 mmHg 2018-03-27 Blood pressure diastolic 70 mmHg 2018-03-27 MEDICATIONS Medication Instructions Dosage Frequency Start Date End Date Duration Status Complete 14-0.4 MG Orally Once a day 1 tablet 24h Active RESULTS No Results PROCEDURES Procedure Date Ordered Result Body Site URINE-NO MICRO March 27, 2018 INSTRUCTIONS MEDICATIONS ADMINISTERED No Known Medications MEDICAL (GENERAL) HISTORY Type Description Date Medical History - April 2018 Surgical History Appendectomy 2011 Surgical History Tonsilectomy 2012 Hospitalization History Surgery
--- OUTSIDE RECORDS SUMMARY | 2018-09-23 22:46 | XMS REPORT ---
Author Author KE CHAMBERS Organization [facility] Address [address] [place] [address] Care Team Providers Care Acid Pump Operator Name Role Phone KE CHAMBERS Unavailable PROBLEMS Type Condition ICD9-CM Code UBG85-NE Code Onset Dates Condition Status SNOMED Code Problem Dental caries K02.9 Active 12523953 ALLERGIES No Information ENCOUNTERS Encounter Location Date Diagnosis [place] [address] 18829- 1737 Apr, Post-term , 40-42 weeks of gestation O48.0 and Decreased movements in third trimester, single or unspecified fetus O36.8130 [place] [address] 06211- 5026 Apr, 40 weeks gestation of Z3A.40 and Third trimester Z34.93 [place] [address] 10759- 4170 Apr, 39 weeks gestation of Z3A.39 and Third trimester Z34.93 [facility] [id number] [place] [address] [id number] Apr, Dental examination Z01.20 [place] [id number] [place] [address] 51576- 1193 Apr, 38 weeks gestation of Z3A.38 and Third trimester Z34.93 [place] [address] 68500- 7512 Mar, Third trimester Z34.93 [place] [id number] [place] [address] 57114- 8254 Mar, care in third trimester Z34.93 ; 36 weeks gestation of Z3A.36 and Yeast infection B37.9 [place] [address] [place] [address] 49591- 4523 Mar, care in third trimester Z34.93 and 35 weeks gestation of Z3A.35 [place] [id number] [place] [address] 22373- 4143 Feb, 33 weeks gestation of Z3A.33 [place] [address] 27151- 3998 Feb, Dental examination Z01.20 [place] [id number] [place] [address] 79523- 4834 Feb, care in third trimester Z34.93 ; Encounter for immunization Z23 and 31 weeks gestation of Z3A.31 [place] [id number] [place] [address] 00501- 2719 January, Third trimester Z34.93 ; 29 weeks gestation of Z3A.29 and Abnormal obstetric ultrasound scan O28.3 [place] [id number] [place] [address] 15745- 8119 January, Normal first in second trimester Z34.02 and 25 weeks gestation of Z3A.25 [place] [id number] [place] [address] 92647- 8717 Dec, Dental examination Z01.20 and Dental caries K02.9 [place] [id number] [place] [address] 80886- 6896 Dec, [place] [id number] [place] [address] 64007- 3833 Nov, Screening for deficiency anemia Z13.0 [place] [id number] [place] [address] 04837- 9841 Nov, [place] [id number] [place] [address] 41205- 9978 Nov, Normal first in second trimester Z34.02 ; 20 weeks gestation of Z3A.20 and High risk teen in second trimester O09.892 [place] [address] [address]- 4186 08 Nov, 2017 [place] [id number] [place] [address] 11413- 1208 Nov, 16 weeks gestation of Z3A.16 ; Low lying placenta NOS or without hemorrhage, second trimester O44.42 ; High risk teen in second trimester O09.892 and Second trimester Z34.92 [place] [id number] [place] [address] 61200- 7376 Sep, Normal , first Z34.00 ; 12 weeks gestation of Z3A.12 and High risk teen in second trimester O09.892 [place] [id number] [place] [address] 71044- 0189 Sep, [place] [address] [address] [id number] [place] [address] 59207- 9136 Sep, Encounter for test, result unknown Z32.00 IMMUNIZATIONS No Known Immunizations SOCIAL HISTORY Never Assessed REASON FOR VISIT OB 4wk f/u -- héctor little PLAN OF CARE Activity Details Follow Up 2 Weeks Reason: VITAL SIGNS Height 66 in 2018-02-14 Weight 142.0 lbs 2018-02-14 Temperature 98.0 degrees Fahrenheit 2018-02-14 Heart Rate 68 bpm 2018-02-14 Respiratory Rate 18 2018-02-14 BMI 22.919 kg/m2 2018-02-14 Blood pressure systolic 108 mmHg 2018-02-14 Blood pressure diastolic 68 mmHg 2018-02-14 MEDICATIONS Medication Instructions Dosage Frequency Start Date End Date Duration Status Complete 14-0.4 MG Orally Once a day 1 tablet 24h Active RESULTS Name Result Date Reference Range UA OB DIP (IN HOUSE) 2018-02-14 Glucose neg Protein neg PROCEDURES Procedure Date Ordered Result Body Site URINE-NO MICRO February 14, 2018 INSTRUCTIONS MEDICATIONS ADMINISTERED No Known Medications MEDICAL (GENERAL) HISTORY Type Description Date Medical History - April 2018 Surgical History Appendectomy 2011 Surgical History Tonsilectomy 2012 Hospitalization History Surgery
[2018-09-23] MEDS ORDERED: TETANUS,DIPTH,PERTUSS P/F (BOOSTRIX) 0.5 ML VIAL IM SCH (23:15)
[2018-09-23] MEDS ORDERED: LIDOCAINE/EPI 2% 1:100,00 (XYLOCAINE) 20 ML VIAL ONE (23:48)
[2018-09-23 23:52] LABS: BASOPHILS % (AUTO) 0 % (0-10); EOSINOPHILS # (AUTO) 0.1 10^3/uL (0.0-0.3); EOSINOPHILS % (AUTO) 2 % (0-10); HEMATOCRIT 39 % (35-52); HEMOGLOBIN 12.8 G/DL (11.5-16.0); LYMPHOCYTES # (AUTO) 1.6 X 10^3 (1.0-4.0); LYMPHOCYTES % (AUTO) 24 % (12-44); MEAN CORPUSCULAR HEMOGLOBIN 28 PG (25-34); MEAN CORPUSCULAR HGB CONC 33 G/DL (32-36); MEAN CORPUSCULAR VOLUME 84 FL (80-99); MEAN PLATELET VOLUME 9.2 FL (7.4-10.4); MONOCYTES # (AUTO) 0.5 X 10^3 (0.0-1.0); MONOCYTES % (AUTO) 8 % (0-12); NEUTROPHILS # (AUTO) 4.3 X 10^3 (1.8-7.8); NEUTROPHILS % (AUTO) 66 % (42-75); PLATELET COUNT 236 10^3/uL (130-400); RED BLOOD COUNT 4.62 10^6/uL (4.35-5.85); RED CELL DISTRIBUTION WIDTH 15.1 % (10.0-14.5); WHITE BLOOD COUNT 6.6 10^3/uL (4.3-11.0)
[2018-09-24 00:12] LABS: ALANINE AMINOTRANSFERASE 14 U/L (0-55); ALBUMIN 4.9 GM/DL (3.2-4.5); ALKALINE PHOSPHATASE 64 U/L (40-136); AMYLASE 73 U/L (25-125); BILIRUBIN,TOTAL 0.3 MG/DL (0.1-1.0); BUN/CREATININE RATIO 9; CALCIUM 9.7 MG/DL (8.5-10.1); CARBON DIOXIDE 21 MMOL/L (21-32); CHLORIDE 109 MMOL/L (98-107); CREATININE SERUM 0.85 MG/DL (0.60-1.30); GFR ESTIMATED > 60; GLUCOSE 86 MG/DL (70-105); POTASSIUM 3.6 MMOL/L (3.6-5.0); SALICYLATE < 5.0 MG/DL (5.0-20.0); SODIUM 143 MMOL/L (135-145); TOTAL PROTEIN 7.4 GM/DL (6.4-8.2)
[2018-09-24 00:22] LABS: ACETAMINOPHEN < 10 UG/ML (10-30)
[2018-09-24 00:32] LABS: TSH (THYROID ANALYZER) 1.81 UIU/ML (0.35-4.94)
[2018-09-24 01:05] LABS: BILIRUBIN,URINE NEGATIVE (NEGATIVE); CLARITY,URINE CLEAR; COLOR,URINE YELLOW; GLUCOSE, URINE (UA) NEGATIVE (NEGATIVE); KETONES,URINE NEGATIVE (NEGATIVE); LEUKOCYTE ESTERASE ,URINE NEGATIVE (NEGATIVE); NITRITE,URINE NEGATIVE (NEGATIVE); PH,URINE 6 (5-9); PROTEIN,URINE NEGATIVE (NEGATIVE); UROBILINOGEN,URINE NORMAL (NORMAL)
[2018-09-24 01:17] LABS: BACTERIA,URINE FEW /HPF; RBC,URINE RARE /HPF; WBC,URINE RARE /HPF
[2018-09-24 01:27] LABS: AMPHETAMINE SCREEN, URINE NEGATIVE (NEGATIVE); BARBITURATE SCREEN URINE NEGATIVE (NEGATIVE); BENZODIAZEPINES SCREEN URINE NEGATIVE (NEGATIVE); CANNABINOID SCREEN, URINE NEGATIVE (NEGATIVE); COCAINE SCREEN URINE NEGATIVE (NEGATIVE); METHADONE STAT NEGATIVE (NEGATIVE); METHAMPHETAMINE SCREEN URINE S NEGATIVE (NEGATIVE); OPIATE SCREEN URINE NEGATIVE (NEGATIVE); OXYCODONE STAT NEGATIVE (NEGATIVE); PROPOXYPHENE STAT NEGATIVE (NEGATIVE); TRICYCLIC ANTIDEPRESSANTS SCRE NEGATIVE (NEGATIVE)
[2018-09-24] MEDS ORDERED: SULF1TAB35 PO (03:37)
--- NOTE | 2018-09-24 03:38 | ED Psychosocial ---
General Chief Complaint: Laceration Stated Complaint: LACERATION RT ARM Nursing Triage Note: PT BECAME ANGRY WITH HER SPOUSE DURING AN ARGUEMENT, STATES THAT SHE FEELS LIKE HE DOESNT HELP ENOUGH WITH THEIR SON. FOUND A PIECE OF BROKEN GLASS ON THE FLOOR AND USED IT TO CUT HER LEFT FORARM THREE TIMES. STATES SHE WAS EXTREMELY UPSET, DENIES HAVING SUICIDAL IDEATIONS OR A PLAN. Allergies and Home Medications Allergies Coded Allergies: No Known Drug Allergies (Unverified , 05/03/18) Home Medications Docusate Sodium 100 Mg Capsule, 100 MG PO BID Prescribed by: SHARON GERONIMO on 05/03/182009 Ibuprofen 800 Mg Tablet, 800 MG PO Q6H Prescribed by: SHARON GERONIMO on 05/03/182009 Oxycodone HCl/Acetaminophen 1 Each Tablet, 1 TAB PO Q4HR PRN for PAIN-MODERATE TO SEVERE Prescribed by: SHARON GERONIMO on 05/03/182009 Past Qacxpfo-Kxxojj-Cfmues Hx Patient Social History 2nd Hand Smoke Exposure: No Recent Foreign Travel: No Contact w/Someone Who Travel: No Recent Infectious Disease Expo: No Recent Hopitalizations: No Immunizations Up To Date Tetanus Booster (TDap): Less than 5yrs PED Vaccines UTD: Yes Seasonal Allergies Seasonal Allergies: No Past Medical History Surgeries: Yes Appendectomy, Section, Tonsillectomy Respiratory: No Cardiac: No Neurological: No : No (USING CONTROL) Genitourinary: No Gastrointestinal: No Musculoskeletal: No Endocrine: No HEENT: No Cancer: No Psychosocial: No Integumentary: No Blood Disorders: No Adverse Reaction/Blood Tranf: No Family Medical History No Pertinent Family Hx Physical Exam Vital Signs - First Documented 09/23/18 22:45 Temp 98.3 Pulse 96 Resp 22 B/P (MAP) 125/85 (98) Pulse Ox 99 O2 Delivery Room Air Capillary Refill : Less Than 3 Seconds Height, Weight, BMI Height: 5'6.00" Weight: 120lbs. 0.0oz. [id number]; 27.3 BMI Method:Stated Progress/Results/Core Measures Results/Orders Lab Results Laboratory Tests Test 09/23/18 00:55 09/23/18 23:40 09/24/18 00:55 Range/Units Urine Color YELLOW Urine Clarity CLEAR Urine pH 6 5-9 Urine Specific [place] 1.010 L 1.016-1.022 Urine Protein NEGATIVE NEGATIVE Urine Glucose (UA) NEGATIVE NEGATIVE Urine Ketones NEGATIVE NEGATIVE Urine Nitrite NEGATIVE NEGATIVE Urine Bilirubin NEGATIVE NEGATIVE Urine Urobilinogen NORMAL NORMAL MG/DL Urine Leukocyte Esterase NEGATIVE NEGATIVE Urine RBC (Auto) NEGATIVE NEGATIVE Urine RBC RARE /HPF Urine WBC RARE /HPF Urine Squamous Epithelial Cells 5-10 /HPF Urine Crystals NONE /LPF Urine Bacteria FEW H /HPF Urine Casts NONE /LPF Urine Mucus NEGATIVE /LPF Urine Culture Indicated NO Urine Opiates Screen NEGATIVE NEGATIVE Urine Oxycodone Screen NEGATIVE NEGATIVE Urine Methadone Screen NEGATIVE NEGATIVE Urine Propoxyphene Screen NEGATIVE NEGATIVE Urine Barbiturates Screen NEGATIVE NEGATIVE Ur Tricyclic Antidepressants Screen NEGATIVE NEGATIVE Urine Phencyclidine Screen NEGATIVE NEGATIVE Urine Amphetamines Screen NEGATIVE NEGATIVE Urine Methamphetamines Screen NEGATIVE NEGATIVE Urine Benzodiazepines Screen NEGATIVE NEGATIVE Urine Cocaine Screen NEGATIVE NEGATIVE Urine Cannabinoids Screen NEGATIVE NEGATIVE White Blood Count 6.6 4.3-11.0 10^3/uL Red Blood Count 4.62 4.35-5.85 10^6/uL Hemoglobin 12.8 11.5-16.0 G/DL Hematocrit 39 35-52 % Mean Corpuscular Volume 84 80-99 FL Mean Corpuscular Hemoglobin 28 25-34 PG Mean Corpuscular Hemoglobin Concent 33 32-36 G/DL Red Cell Distribution Width 15.1 H 10.0-14.5 % Platelet Count 236 130-400 10^3/uL Mean Platelet Volume 9.2 7.4-10.4 FL Neutrophils (%) (Auto) 66 42-75 % Lymphocytes (%) (Auto) 24 12-44 % Monocytes (%) (Auto) 8 0-12 % Eosinophils (%) (Auto) 2 0-10 % Basophils (%) (Auto) 0 0-10 % Neutrophils # (Auto) 4.3 1.8-7.8 X 10^3 Lymphocytes # (Auto) 1.6 1.0-4.0 X 10^3 Monocytes # (Auto) 0.5 0.0-1.0 X 10^3 Eosinophils # (Auto) 0.1 0.0-0.3 10^3/uL Basophils # (Auto) 0.0 0.0-0.1 10^3/uL Sodium Level 143 135-145 MMOL/L Potassium Level 3.6 3.6-5.0 MMOL/L Chloride Level 109 H 98-107 MMOL/L Carbon Dioxide Level 21 21-32 MMOL/L Anion Gap 13 5-14 MMOL/L Blood Urea Nitrogen 8 7-18 MG/DL Creatinine 0.85 0.60-1.30 MG/DL Estimat Glomerular Filtration Rate > 60 BUN/Creatinine Ratio 9 Glucose Level 86 70-105 MG/DL Calcium Level 9.7 8.5-10.1 MG/DL Corrected Calcium 8.5-10.1 MG/DL Total Bilirubin 0.3 0.1-1.0 MG/DL Aspartate Amino Transf (AST/SGOT) 17 5-34 U/L Alanine Aminotransferase (ALT/SGPT) 14 0-55 U/L Alkaline Phosphatase 64 40-136 U/L Total Protein 7.4 6.4-8.2 GM/DL Albumin 4.9 H 3.2-4.5 GM/DL Amylase Level 73 25-125 U/L TSH [place] Testing 1.81 0.35-4.94 UIU/ML Salicylates Level < 5.0 L 5.0-20.0 MG/DL Acetaminophen Level < 10 L 10-30 UG/ML Serum Alcohol < 10 <10 MG/DL Urine Test NEGATIVE NEGATIVE My Orders Orders - JULIANO,DAXA K DO O2 (09/23/18 23:13) Ua Culture If Indicated (09/23/18 23:13) Thyroid Analyzer (09/23/18 23:13) Drug Screen Stat (Urine) (09/23/18 23:13) Cbc With Automated Diff (09/23/18 23:13) Comprehensive Metabolic Panel (09/23/18 23:13) Amylase (09/23/18 23:13) Alcohol (09/23/18 23:13) Acetaminophen (09/23/18 23:13) Salicylate (09/23/18 23:13) Ekg Tracing (09/23/18 23:13) Monitor-Rhythm Ecg Trace Only (09/23/18 23:13) Dipht,Pertuss(Acell),Tet Adult (Boostrix (09/23/18 23:15) Lidocaine/Epi 2% 1:100,000 (Xylocaine/Ep (09/23/18 23:48) Wound Dressing-Ed (09/24/18 00:10) Hcg,Qualitative Urine (09/24/18 01:22) Medications Given in ED Current Medications Medications Dose Ordered Sig/Alexandra Route Start Time Stop Time Status Last Admin Dose Admin Lidocaine/ Epinephrine 20 ml STK-MED ONCE .ROUTE 09/23/18 23:48 09/23/18 23:52 DC 09/24/18 00:30 20 ML Vital Signs/I&O 09/23/18 22:45 Temp 98.3 Pulse 96 Resp 22 B/P (MAP) 125/85 (98) Pulse Ox 99 O2 Delivery Room Air Blood Pressure Mean: 98 Urine -Bedside: Negative Departure Impression Primary Impression: Suicidal ideations Additional Impressions: SUICIDE ATTEMPT BY CUTTING LEFT ARM Lacerations of multiple sites of left arm Disposition: HOME, SELF-CARE Condition: Stable Departure-Patient Inst. Referrals: [facility] BELKYS BECKER MD (PCP/Family) Primary Care Physician Patient Instructions: Laceration Repair With [place] (DC), SUICIDE CONTRACT, Suicide Prevention Add. Discharge Instructions: SAFETY PLAN PER MENTAL HEALTH CLEAN WOUNDS TWICE A DAY WITH ANTIBACTERIAL SOAP AND WATER ON A Q-TIP, OTHERWISE KEEP CLEAN AND DRY VERNON OUT IN 10-14 DAYS --RETURN TO ER FOR REMOVAL FOLLOW UP WITH [facility] LATER THIS MORNING FOR FURTHER CARE RETURN TO ER IF SYMPTOMS WORSEN All discharge instructions reviewed with patient and/or family. Voiced understanding. Scripts Sulfamethoxazole/Trimethoprim (Bactrim Ds Tablet) 1 Each Tablet 1 EACH PO BID, #20 TAB Prov: DAXA HENAO DO 09/24/18 DAXA HENAO DO Sep 24, 2018 03:38
[2018-09-24 04:04] VITALS: BP 125/85
== END 2018-09-24 04:04 | disposition home or self-care (01) ==
LOC: EDUNIT# 22:39 → ER 22:40
DX: T14.91XA Suicide attempt, initial encounter (principal); S51.811A Laceration without foreign body of right forearm, initial encounter; Z90.49 Acquired absence of other specified parts of digestive tract; Z98.890 Other specified postprocedural states; Z90.89 Acquired absence of other organs; Z23 Encounter for immunization; Z91.5 Personal history of self-harm; W25.XXXA Contact with sharp glass, initial encounter
CPT/HCPCS: 36415; 80053; 80306; 80320; 80329; 81000; 82150; 84443; 84703; 85025; 90471; 90715; 93005; 93041

== ENCOUNTER 2019-04-04 13:27 | Day surgery (SDC) | payer BC ==
[2019-04-04] VITALS (11 sets, daily range): BP systolic 93–113; BP diastolic 58–75
[~2019-04-04] VITALS: Ht 167.6 cm; Wt 56.7 kg
[~2019-04-04 13:27] MED LIST changes: +SULF1TAB35 PO
[2019-04-04] MEDS: LACTATED RINGERS 1,000 ML IV PRN ×2 (13:45→17:52)
--- NOTE | 2019-04-04 13:58 | Progress Note-Pre Operative ---
Pre-Operative Progress Note H&P Reviewed The H&P was reviewed, patient examined and no changes noted. Date Seen by Provider: Apr 04, 2019 Time Seen by Provider: 13:58 Date H&P Reviewed: Apr 04, 2019 Time H&P Reviewed: 13:58 Pre-Operative Diagnosis: Missed AB/blighted ovum SHARON SANTAMARIA MD Apr 04, 2019 13:58
[2019-04-04] MEDS ORDERED: D5 LR IV SOLUTION 1,000 ML IV SCH (13:59)
--- NOTE | 2019-04-04 13:59 | Progress Note-Post Operative ---
Post-Operative Progess Note Surgeon (s)/Natural Sciences Professor (s) Surgeon SHARON SANTAMARIA MD Natural Sciences Professor: no Pre-Operative Diagnosis Missed AB/blighted ovum Post-Operative Diagnosis Same Procedure & Operative Findings Date of Procedure 04/04/19 Procedure Performed/Findings D&C for first trimester missed AB Anesthesia Type GETA Estimated Blood Loss Estimated blood loss (mL): 75 cc Specimens/Packing Specimens Removed Uterine contents/POC SHARON SANTAMARIA MD Apr 04, 2019 13:58
[2019-04-04] MEDS ORDERED: ONDANSETRON 4 MG/2 ML (SDV) Z0FRAN IVP PRN ×2 (14:00→18:15)
[2019-04-04] MEDS ORDERED: KETOROLAC 30 MG/ML VIAL IVP ONE (14:00)
[2019-04-04] MEDS ORDERED: oxyCODONE/APAP 5/325MG (PERCOCET 5) TABLET PO PRN (14:00)
[2019-04-04] MEDS ORDERED: PROMETHAZINE INJ 25 MG/ML (PHENERGAN) AMP IM ONE (14:00)
[2019-04-04] MEDS ORDERED: MEPERIDINE (DEMEROL) INJ 100 MG/ML IM ONE (14:00)
[2019-04-04 14:01] LABS: BASOPHILS % (AUTO) 0 % (0-10); EOSINOPHILS % (AUTO) 0 % (0-10); HEMATOCRIT 40 % (35-52); HEMOGLOBIN 13.4 G/DL (11.5-16.0); LYMPHOCYTES # (AUTO) 1.6 X 10^3 (1.0-4.0); LYMPHOCYTES % (AUTO) 21 % (12-44); MEAN CORPUSCULAR HEMOGLOBIN 29 PG (25-34); MEAN CORPUSCULAR HGB CONC 33 G/DL (32-36); MEAN CORPUSCULAR VOLUME 86 FL (80-99); MEAN PLATELET VOLUME 9.3 FL (7.4-10.4); MONOCYTES # (AUTO) 0.5 X 10^3 (0.0-1.0); MONOCYTES % (AUTO) 7 % (0-12); NEUTROPHILS # (AUTO) 5.4 X 10^3 (1.8-7.8); NEUTROPHILS % (AUTO) 72 % (42-75); PLATELET COUNT 247 10^3/uL (130-400); RED CELL DISTRIBUTION WIDTH 12.7 % (10.0-14.5); WHITE BLOOD COUNT 7.6 10^3/uL (4.3-11.0)
--- NOTE | 2019-04-04 14:02 | Discharge Instructions ---
Discharge Instructions Discharge Medications New, Converted or Re-Newed RX: RX on Chart Patient Instructions Patient Instructions: As directed Return to The Hospital For: As directed Activity & Diet Discharge Diet: No Restrictions Activity as Tolerated: No Orders-Post D/C & Referrals Follow Up Appt: Call to make follow up appt. for patient in 2 weeks. Activity: Rest for 24 hours, than as tolerated. Diet: As tolerated-Clear Liquids only if nauseated. shower or tub bathe as desired. No driving for 24 hours, no alcoholic beverages for 24 hours, and nothing per va dhaval (no tampons, douching, or intercourse) for 2 weeks. Patient to return to the clinic as soon as possible for: Temperature greater than 101F, Severe Pain, Foul discharge from incision or vagina, Excessive Bleeding (more than a period). SHARON SANTAMARIA MD Apr 04, 2019 14:02
[2019-04-04] MEDS ORDERED: ceFAZolin INJECTION 1,000 MG ONE (15:02)
[2019-04-04] MEDS ORDERED: IBUP-1773 PO (15:16)
[2019-04-04] MEDS ORDERED: OXYC1TAB87 PO (15:16)
[2019-04-04] MEDS ORDERED: MIDAZOLAM 2 MG/2 ML (VERSED) VIAL ONE (15:32)
[2019-04-04] MEDS ORDERED: LIDOCAINE PF 2% 5 ML (XYLOCAINE) VIAL ONE (15:32)
[2019-04-04] MEDS ORDERED: proPOfol 200 MG/20 ML (DIPRIVAN) VIAL IV ONE (15:32)
[2019-04-04] MEDS ORDERED: SEVOFLURANE (ULTANE) 15 ML INHAL SOLN ONE ×2 (15:32→17:54)
[2019-04-04] MEDS ORDERED: fentaNYL INJECTION 100 MCG/2 ML AMP ONE (15:32)
[2019-04-04] MEDS ORDERED: ONDANSETRON 4 MG/2 ML (SDV) Z0FRAN ONE (15:32)
[2019-04-04] MEDS ORDERED: morphine INJ 10 MG/ML 1ML (SYR OR VIAL) ONE (15:54)
[2019-04-04] MEDS ORDERED: KETOROLAC 30 MG/ML VIAL ONE ×2 (15:55→17:54)
[2019-04-04] MEDS ORDERED: morphine INJ 10 MG/ML 1ML (SYR OR VIAL) IVP ONE (18:15)
[2019-04-04] MEDS ORDERED: HYDROmorphone 2 MG/ML VIAL (DILAUDID) IV ONE (18:15)
[2019-04-04] MEDS ORDERED: MEPERIDINE (DEMEROL) INJ 50 MG/ML IVP ONE (18:15)
--- NOTE | 2019-04-04 19:10 | NUR ---
Pt. to rm [phone] via cart from recovery per Cathryn Barnett, mine safety manager. Pt. oriented to rm, given call light, denies pain or needs. POC reviewed, pt. verbalized understanding, in room. Report rc'd from Cathryn Barnett RN.
--- NOTE | 2019-04-04 20:18 | NUR ---
Called Dr. Gloria, update given & POC reviewed, will D/C after pt. able to void & tolerate PO.
--- NOTE | 2019-04-04 21:10 | NUR ---
Pt. dressed & ready to go home, IV D/C'd, D/C instructions given & explained, pt. verbalized understanding & signed, copy of D/C instructions to pt. Rx given, pt. declined ibuprofen Rx, did not call to pharmacy per pt's request. Pt. left [facility] via W/C escorted by this RN & , to home via private vehicle.
--- NOTE | 2019-04-05 02:16 | OPERATIVE REPORT ---
DATE OF SERVICE: 04/04/2019 PREOPERATIVE DIAGNOSIS: Missed /blighted ovum. POSTOPERATIVE DIAGNOSIS: Missed /blighted ovum. OPERATIVE PROCEDURE: D and C for first trimester missed . OPERATIVE PROCEDURE: With the patient in the supine position under satisfactory general anesthesia, she was repositioned in dorsal lithotomy position in the Enrrique stirrups and prepped and draped in the usual fashion for vaginal surgery. Urinary bladder was drained with a straight catheter. A weighted speculum placed in posterior fornix of vagina, cervix exposed and grasped anteriorly with single tooth tenaculum. Uterus was sounded to 14 cm with uterine sound. Cervix was then serially dilated with Slick dilators to a #20 Slick and then #9 curved suction curette was introduced and the endometrial cavity curettaged with removal of a large amount of trophoblastic and decidual appearing tissue, blood clot, amniotic fluid and debris. The endometrial cavity was then sharply curettaged in all 4 quadrants to good uterine cry. A curved suction curette was reintroduced and all blood clot and debris evacuated from the uterus. There was no bleeding from the cervical os on completion of the procedure was minimal spotting or bleeding from the tenaculum puncture sites. The sponge and needle counts were correct. Estimated blood loss was maybe 50 to 70 mL. The patient tolerated the procedure well and was uneventfully awakened from her general anesthesia and transferred to the recovery room in stable condition with plans for discharge home PAR. Job ID: [id number] DocumentID: [id number] Dictated Date: 04/04/2019 17:59:02 Pump And Still Operator Date: 04/05/2019 02:15:55 Dictated By: SHARON SANTAMARIA MD
--- NOTE | 2019-04-05 14:34 | Anesthesia-General Post-Op ---
General Significant Intra-Op Events Notes Late Entry: 04/04/19 1420 Patient Condition Mental Status/LOC: Same as Preop Cardiovascular: Satisfactory Nausea/Vomiting: Absent Respiratory: Satisfactory Pain: Controlled Complications: Absent Post Op Complications Complications None Follow Up Care/Instructions Patient Instructions None needed. Anesthesia/Patient Condition Patient Condition Patient is doing well, no complaints, stable vital signs, no apparent adverse anesthesia problems. No complications reported per nursing. CAL DIETZ [employer] Apr 05, 2019 14:34
== END 2019-04-04 21:10 | disposition home or self-care (01) ==
LOC: SDC 13:27
PROVIDERS: ATTEND Obstetrics & Gynecology
DX: O02.1 Missed abortion (principal); Z11.2 Encounter for screening for other bacterial diseases
CPT/HCPCS: 36415; 85025; 86850; 86900; 86901; 87081

== ENCOUNTER 2019-09-14 15:40 | Emergency (ER) | payer BC ==
[~2019-09-14] VITALS: Ht 167 cm; Wt 60.0 kg
[~2019-09-14 15:40] MED LIST changes: +IBUP-1773 PO; +OXYC1TAB87 PO
[2019-09-14] MEDS ORDERED: NITR100C10 (16:02)
[2019-09-14] MEDS ORDERED: PREN-102 PO (16:03)
--- NOTE | 2019-09-14 16:34 | ED Integumentary General ---
General Chief Complaint: Allergic Reaction Stated Complaint: 15 WKS PREG/FACIAL SWELLING/RASH Nursing Triage Note: ARRIVED VIA AMB TO TRIAGE IN NO DISTRESS. STATES SHE HAS BEEN TAKING MACROBID FOR ABOUT A WEEK BUT NOT REGULARY AND TODAY HAS BROKE OUT IN A RASH. PT STATES SHE TOOK BENADRYL 50MG AT 1000. PT IS ALSO 15 WEEKS GESTATION. Source: patient Exam Limitations: no limitations History of Present Illness Date Seen by Provider: Sep 14, 2019 Time Seen by Provider: 16:33 Allergies and Home Medications Allergies Coded Allergies: No Known Drug Allergies (Unverified , 04/04/19) Review of Systems Review of Systems Expected Date of Delivery: Mar 03, 2020 Past Lsrwgia-Mtyqwc-Zennkr Hx Patient Social History Alcohol Use: Denies Use Recreational Drug Use: No Smoking Status: Never a Smoker 2nd Hand Smoke Exposure: No Recent Foreign Travel: No Contact w/Someone Who Travel: No Recent Infectious Disease Expo: No Recent Hopitalizations: No Immunizations Up To Date Tetanus Booster (TDap): Less than 5yrs PED Vaccines UTD: Yes Seasonal Allergies Seasonal Allergies: No Past Medical History Surgeries: Yes Appendectomy, Section, Tonsillectomy Respiratory: No Cardiac: No Neurological: No : Yes Expected Date of Delivery: Mar 03, 2020 Reproductive Disorders: Yes Genitourinary: No Gastrointestinal: No Musculoskeletal: No Endocrine: No HEENT: No Cancer: No Psychosocial: Yes (HX OF SUICIDAL THOUGHTS, DEPRESSION AND POST - DEPRESSION) Depression Integumentary: No Blood Disorders: No Adverse Reaction/Blood Tranf: No Family Medical History No Pertinent Family Hx Physical Exam Vital Signs Vital Signs - First Documented 09/14/19 15:50 Temp 36.6 Pulse 107 Resp 16 B/P (MAP) 119/84 (96) Pulse Ox 99 O2 Delivery Room Air Capillary Refill : Less Than 3 Seconds Progress/Results/Core Measures Results/Orders My Orders Orders - RICARDO BAUER Heart Tones (09/14/19 16:45) Famotidine Tablet (Pepcid Tablet) (09/14/19 16:45) Prednisone Tablet (Deltasone Tablet) (09/14/19 16:45) Diphenhydramine Tablet (Benadryl Tablet) (09/14/19 16:45) Medications Given in ED Current Medications Medications Dose Ordered Sig/Alexandra Route Start Time Stop Time Status Last Admin Dose Admin Diphenhydramine HCl 25 mg ONCE ONCE PO 09/14/19 16:45 09/14/19 16:47 DC 09/14/19 17:02 25 MG Prednisone 40 mg ONCE ONCE PO 09/14/19 16:45 09/14/19 16:47 DC 09/14/19 17:02 40 MG Vital Signs/I&O 09/14/19 15:50 Temp 36.6 Pulse 107 Resp 16 B/P (MAP) 119/84 (96) Pulse Ox 99 O2 Delivery Room Air Blood Pressure Mean: 96 Departure Communication (Admissions) FHT'S 145 Impression Primary Impression: Allergy to antibacterial drug Additional Impression: 15 weeks gestation of Disposition: HOME, SELF-CARE Condition: Improved Departure-Patient Inst. Decision time for Depature: 17:07 Referrals: SHARON GLORIA MD (PCP) Primary Care Physician KE CHAMBERS MD (Family) Primary Care Physician Patient Instructions: Drug Allergy Add. Discharge Instructions: All discharge instructions reviewed with patient and/or family. Voiced understanding. Medications as instructed. Benadryl [id number] 25-50 mg by mouth every 4-6 hours as needed for itching and rash. Follow-up with Dr. Gloria for recheck within the next week. Call Sunday for appointment time. Return in the emergency department for worsened symptoms, difficulty breathing, difficulty swallowing, swelling of the face/tongue/throat, vomiting, headache, or any other concerns. Scripts Famotidine (Pepcid) 20 Mg Tablet 20 MG PO BID, #14 TAB 0 Refills Prov: RICARDO BAUER 09/14/19 Prednisone (Prednisone) 20 Mg Tab 40 MG PO DAILY, #4 TAB 0 Refills Prov: RICARDO BAUER 09/14/19 RICARDO BAUER Sep 14, 2019 16:33
[2019-09-14] MEDS ORDERED: diphenhydrAMINE 25 MG TAB (BENADRYL) PO ONE (16:45)
[2019-09-14] MEDS ORDERED: predniSONE 20 MG TAB PO ONE (16:45)
[2019-09-14] MEDS ORDERED: FAMOTIDINE 20 MG (PEPCID) TABLET PO STA (16:45)
[2019-09-14] MEDS ORDERED: PRD20T PO (17:10)
[2019-09-14] MEDS ORDERED: FAMO-119 PO (17:10)
[2019-09-14 17:34] VITALS: BP 119/84
== END 2019-09-14 17:34 | disposition home or self-care (01) ==
LOC: EDUNIT# 15:40 → ER 15:42
DX: O26.892 Other specified pregnancy related conditions, second trimester (principal); R21 Rash and other nonspecific skin eruption; O9A.22 Injury, poisoning and certain other consequences of external causes complicating childbirth; T36.95XA Adverse effect of unspecified systemic antibiotic, initial encounter; O99.342 Other mental disorders complicating pregnancy, second trimester; F32.9 Major depressive disorder, single episode, unspecified; Z3A.15 15 weeks gestation of pregnancy; Z90.49 Acquired absence of other specified parts of digestive tract; Z90.89 Acquired absence of other organs

== ENCOUNTER 2020-02-23 05:55 | Outpatient (RCR) | payer BC ==
--- NOTE | 2020-02-19 12:06 | Discharge Inst-Surgical ---
Discharge Inst-Surgical Depart Medication/Instructions New, Converted or Re-Newed RX: RX on Chart Consults/Follow Up Patient Instructions: as directed Orders & Referrals Follow Up Appt: RTC 1 week for incision check. Call to make follow up appt. for patient in 4 weeks. Wound Care: Remove bertin, apply benzoin and steri strips. Activity Per routine post instructions. Please call in RX to patient pharmacy. Diet as tolerated Patient may shower or tub bathe as desired. Continue home meds Activity Activity as Tolerated: No Diet Discharge Diet: No Restrictions SHARON SANTAMARIA MD Feb 19, 2020 12:06
[~2020-02-23] VITALS: Ht 167 cm; Wt 69.0 kg
[~2020-02-23 05:55] MED LIST changes: +DOCU-143 PO; +FAMO-119 PO; +FLUO20CA42 PO; +NITR100C10; +OXYC1TAB12 PO; +PRD20T PO; +PREN-102 PO
== END 2020-02-23 15:13 | disposition home or self-care (01) ==
LOC: PREOP 05:55
PROVIDERS: ATTEND Obstetrics & Gynecology
DX: Z01.818 Encounter for other preprocedural examination (principal); Z11.59 Encounter for screening for other viral diseases
CPT/HCPCS: 87635

== ENCOUNTER 2020-02-27 10:12 | Inpatient (IN) | payer BC ==
[~2020-02-27] VITALS: Ht 167.7 cm; Wt 39.5 kg
[2020-02-27] VITALS (10 sets, daily range): BP systolic 92–123; BP diastolic 59–82
--- NOTE | 2020-02-27 10:25 | NUR ---
CAPO KEENAN presented to unit via ambulation from registration, accompanied by S.O., for repeat . CAPO KEENAN weighed, gowned, voided, and to bed. EFHM and TOCO applied, VS taken. CAPO KEENAN oriented to bed controls, call light, TV, heat, and A/C controls.
[2020-02-27] MEDS ORDERED: ceFAZolin 2 GM IV Premixed 50 ML IV ONE (10:30)
[2020-02-27] MEDS ORDERED: metroNIDAZOLE 500MG/100ML IVPB 100 ML IV ONE (10:30)
[2020-02-27] MEDS ORDERED: METOCLOPRAMIDE INJ 10 MG/2 ML (REGLAN) IV ONE (10:30)
[2020-02-27] MEDS ORDERED: CATHETER FLUSH 10 ML SYR IV PRN (10:30)
[2020-02-27] MEDS ORDERED: CITRIC ACID/SOB CIT (BICITRA) 30 ML UDC PO ONE (10:30)
[2020-02-27] MEDS ORDERED: FAMOTIDINE 20MG/2ML IV (PEPCID) IVP ONE (10:45)
[2020-02-27] MEDS: LACTATED RINGERS 1,000 ML IV PRN ×2 (10:55→11:43)
[2020-02-27 11:09] LABS: BASOPHILS % (AUTO) 0 % (0-10); EOSINOPHILS # (AUTO) 0.1 10^3/uL (0.0-0.3); EOSINOPHILS % (AUTO) 1 % (0-10); HEMATOCRIT 36 % (35-52); HEMOGLOBIN 11.5 G/DL (11.5-16.0); LYMPHOCYTES # (AUTO) 1.7 X 10^3 (1.0-4.0); LYMPHOCYTES % (AUTO) 17 % (12-44); MEAN CORPUSCULAR HEMOGLOBIN 28 PG (25-34); MEAN CORPUSCULAR HGB CONC 32 G/DL (32-36); MEAN CORPUSCULAR VOLUME 85 FL (80-99); MEAN PLATELET VOLUME 10.8 FL (7.4-10.4); MONOCYTES # (AUTO) 0.7 X 10^3 (0.0-1.0); MONOCYTES % (AUTO) 7 % (0-12); NEUTROPHILS # (AUTO) 7.4 X 10^3 (1.8-7.8); NEUTROPHILS % (AUTO) 75 % (42-75); PLATELET COUNT 194 10^3/uL (130-400); WHITE BLOOD COUNT 9.8 10^3/uL (4.3-11.0)
--- OUTSIDE RECORDS SUMMARY | 2020-02-27 11:09 | XMS REPORT | Continuity of Care Document ---
Author Organization Unknown Address Unknown Phone Unavailable Allergies Active Description Code Type Severity Reaction Onset Reported/Identified Relationship to Patient Clinical Status Yes NO KNOWN DRUG ALLERGIES UNKNOWN UNKNOWN Yes No Known Drug Allergies [id number] Drug Allergy Unknown N/A 04/04/[id number] cerda Allergy Unknown RASH 09/14/[id number] cerda Allergy Mild RASH 02/20/2020 Medications There is no data. Problems Date Dx Coded Attending Type Code Diagnosis Diagnosed By 08/16/1512 SHARON SANTAMARIA MD, Ot Z01.818 ENCOUNTER FOR OTHER PREPROCEDURAL EXAMIN 08/16/1512 SHARON SANTAMARIA MD Ot Z11.59 ENCOUNTER FOR SCREENING FOR OTHER VIRAL 01/20/2017 Zoran Kuo W 599.0 URINARY TRACT INFECTION, SITE NOT SPECIFIED 01/20/2017 Zoran Kuo W N39.0 URINARY TRACT INFECTION, SITE NOT SPECIFIED 08/31/2017 W 599.0 URIN MICHELLE TRACT INFECTION, SITE NOT SPECIFIED 08/31/2017 W 632 MISSED 08/31/2017 W N39.0 URIN MICHELLE TRACT INFECTION, SITE NOT SPECIFIED 08/31/2017 W O02.1 MISS ED 10/18/2017 KE CHAMBERS MD Ot Z34.0 1 ENCNTR FOR SUPRVSN OF NORMAL FIRST PREG, 10/18/2017 KE CHAMBERS MD Ot Z3A.1 2 12 WEEKS GESTATION OF 11/01/2017 KE CHAMBERS MD Ot Z34.0 1 ENCNTR FOR SUPRVSN OF NORMAL FIRST PREG, 11/01/2017 KE CHAMBERS MD Ot Z3A.1 2 12 WEEKS GESTATION OF 11/30/2017 KE CHAMBERS MD Ot Z34.0 1 ENCNTR FOR SUPRVSN OF NORMAL FIRST PREG, 11/30/2017 GAULT MD, KE R Ot Z3A.1 2 12 WEEKS GESTATION OF 12/03/2017 KE CHAMBERS MD R Ot O44.4 2 LOW LYING PLACENTA NOS OR WITHOUT HEMOR, 12/03/2017 KE CHAMBERS MD R Ot Z3A.1 8 18 WEEKS GESTATION OF 12/06/2017 KE CHAMBERS MD R Ot O44.4 2 LOW LYING PLACENTA NOS OR WITHOUT HEMOR, 12/06/2017 KE CHAMBERS MD R Ot Z3A.1 8 18 WEEKS GESTATION OF 01/25/2018 KE CHAMBERS MD R Ot Z34.0 2 ENCNTR FOR SUPRVSN OF NORMAL FIRST PREG, 01/25/2018 KE CHAMBERS MD R Ot Z3A.2 6 26 WEEKS GESTATION OF 01/25/2018 KE CHAMBERS MD R Ot Z34.0 2 ENCNTR FOR SUPRVSN OF NORMAL FIRST PREG, 01/25/2018 KE CHAMBERS MD R Ot Z3A.2 6 26 WEEKS GESTATION OF 01/28/2018 KE CHAMBERS MD R Ot O44.4 2 LOW LYING PLACENTA NOS OR WITHOUT HEMOR, 01/28/2018 KE CHAMBERS MD R Ot Z3A.1 8 18 WEEKS GESTATION OF 01/31/2018 KE CHAMBERS MD R Ot Z34.0 2 ENCNTR FOR SUPRVSN OF NORMAL FIRST PREG, 01/31/2018 KE CHAMBERS MD R Ot Z3A.2 6 26 WEEKS GESTATION OF 02/12/2018 KE CHAMBERS MD R Ot Z34.0 2 ENCNTR FOR SUPRVSN OF NORMAL FIRST PREG, 02/12/2018 KE CHAMBERS MD R Ot Z3A.2 6 26 WEEKS GESTATION OF 05/03/2018 KE CHAMBERS MD R Ot Z34.0 1 ENCNTR FOR SUPRVSN OF NORMAL FIRST PREG, 05/03/2018 KE CHAMBERS MD R Ot Z3A.1 2 12 WEEKS GESTATION OF 05/03/2018 KE CHAMBERS MD R Ot O44.4 2 LOW LYING PLACENTA NOS OR WITHOUT HEMOR, 05/03/2018 KE CHAMBERS MD R Ot Z3A.1 8 18 WEEKS GESTATION OF 05/03/2018 KE CHAMBERS MD R Ot Z34.0 2 ENCNTR FOR SUPRVSN OF NORMAL FIRST PREG, 05/03/2018 KE CHAMBERS MD Ot Z3A.2 6 26 WEEKS GESTATION OF 05/05/2018 FIDEL GODOY MD Ot O36.8930 MATERNAL CARE FOR OTH PROBLEMS, TH 05/05/2018 FIDEL GODOY MD Ot O43.893 OTHER PLACENTAL DISORDERS, THIRD TRIMEST 05/05/2018 FIDEL GODOY MD Ot O69.81X0 LABOR AND DEL COMP BY CORD AROUND NECK, 05/05/2018 FIDEL GODOY MD Ot O76 ABNLT IN HEART RATE AND RHYTHM COM 05/05/2018 FIDEL GODOY MD Ot O99.820 STREPTOCOCCUS B CARRIER STATE COMPLICATI 05/05/2018 FIDEL GODOY MD Ot Z37 .0 SINGLE LIVE 05/05/2018 FIDEL GODOY MD, Ot Z3A.40 40 WEEKS GESTATION OF 05/06/2018 KE CHAMBERS MD Ot O36.8130 DECREASED MOVEMENTS, THIRD TRIMEST 05/06/2018 KE CHAMBERS MD Ot O48.0 POST-TERM 05/06/2018 KE CHAMBERS MD Ot Z3A.4 2 42 WEEKS GESTATION OF 05/17/2018 KE CHAMBERS MD Ot O36.8130 DECREASED MOVEMENTS, THIRD TRIMEST 05/17/2018 KE CHAMBERS MD Ot O48.0 POST-TERM 05/17/2018 KE CHAMBERS MD Ot Z3A.4 2 42 WEEKS GESTATION OF 09/23/2018 KE CHAMBERS MD Ot Z34.0 1 ENCNTR FOR SUPRVSN OF NORMAL FIRST PREG, 09/23/2018 KE CHAMBERS MD Ot Z3A.1 2 12 WEEKS GESTATION OF 09/23/2018 KE CHAMBERS MD Ot O44.4 2 LOW LYING PLACENTA NOS OR WITHOUT HEMOR, 09/23/2018 KE CHAMBERS MD Ot Z3A.1 8 18 WEEKS GESTATION OF 09/23/2018 KE CHAMBERS MD Ot Z34.0 2 ENCNTR FOR SUPRVSN OF NORMAL FIRST PREG, 09/23/2018 KE CHAMBERS MD Ot Z3A.2 6 26 WEEKS GESTATION OF 09/23/2018 TRISH VÁZQUEZ, KE [place] Ot O36.8130 DECREASED MOVEMENTS, THIRD TRIMEST 09/23/2018 KE CHAMBERS MD Ot O48.0 POST-TERM 09/23/2018 KE CHAMBERS MD Ot Z3A.4 2 42 WEEKS GESTATION OF 09/24/2018 DAXA HENAO DO Ot S51.811 A LACERATION W/O FOREIGN BODY OF RIGHT FOR 09/24/2018 JULIANO ABBASI, DAXA Peggy Ot T14.91X A SUICIDE ATTEMPT, INITIAL ENCOUNTER 09/24/2018 JULIANO , DAXA K Ot W25.XXX A CONTACT WITH [place], INITIAL ENCOUN 09/24/2018 JULIANO DOKAYA K Ot Z23 ENCOUNTER FOR IMMUNIZATION 09/24/2018 JULIANO DO DAXA K Ot Z90.49 ACQUIRED ABSENCE OF OTHER SPECIFIED PART 09/24/2018 JULIANO DO, DAXA K Ot Z90.89 ACQUIRED ABSENCE OF OTHER ORGANS 09/24/2018 JULIANO DO DAXA K Ot Z91.5 PERSONAL HISTORY OF SELF-HARM 09/24/2018 JULIANO DO, DAXA K Ot Z98.890 OTHER SPECIFIED POSTPROCEDURAL STATES 09/25/2018 JULIANO DO, DAXA K Ot S51.811 A LACERATION W/O FOREIGN BODY OF RIGHT FOR 09/25/2018 JULIANO ABBASI, DAXA K Ot T14.91X A SUICIDE ATTEMPT, INITIAL ENCOUNTER 09/25/2018 JULIANO DO DAXA K Ot W25.XXX A CONTACT WITH [place], INITIAL ENCOUN 09/25/2018 JULIANO DO DAXA K Ot Z23 ENCOUNTER FOR IMMUNIZATION 09/25/2018 JULIANO DO DAXA K Ot Z90.49 ACQUIRED ABSENCE OF OTHER SPECIFIED PART 09/25/2018 JULIANO DO, DAXA K Ot Z90.89 ACQUIRED ABSENCE OF OTHER ORGANS 09/25/2018 JULIANO DO DAXA K Ot Z91.5 PERSONAL HISTORY OF SELF-HARM 09/25/2018 JULIANO DO DAXA K Ot Z98.890 OTHER SPECIFIED POSTPROCEDURAL STATES 04/04/2019 HINA VÁZQUEZ, SHARON Burgess Ot O02.1 MISSED 04/04/2019 HINA VÁZQUEZ, SHARON Burgess Ot Z11.2 ENCOUNTER FOR SCREENING FOR OTHER BACTER 04/14/2019 SHARON SANTAMARIA MD Ot O02.1 MISSED 04/14/2019 SHARON SANTAMARIA MD Ot Z11.2 ENCOUNTER FOR SCREENING FOR OTHER BACTER 09/14/2019 RICARDO DOMINGUEZ Ot F32.9 MAJOR DEPRESSIVE DISORDER, SINGLE EPISOD 09/14/2019 RICARDO DOMINGUEZ Ot O26.892 OTH RELATED CONDITIONS, SECOND 09/14/2019 RICARDO DOMINGUEZ Ot O99.342 OTH MENTAL DISORDERS COMP , SEC 09/14/2019 RICARDO DOMINGUEZ Ot O9A.22 INJ/POISN/OTH CONSEQ OF EXTERNAL CAUSES 09/14/2019 RICARDO DOMINGUEZ Ot R 21 RASH AND OTHER NONSPECIFIC SKIN ERUPTION 09/14/2019 RICARDO DOMINGUEZ Ot T36.95XA ADVERSE EFFECT OF UNSP SYSTEMIC ANTIBIOT 09/14/2019 RICARDO DOMINGUEZ Ot Z3A.15 15 WEEKS GESTATION OF 09/14/2019 RICARDO DOMINGUEZ Ot Z90.49 ACQUIRED ABSENCE OF OTHER SPECIFIED PART 09/14/2019 RICARDO DOMINGUEZ Ot Z90.89 ACQUIRED ABSENCE OF OTHER ORGANS 09/18/2019 RICARDO DOMINGUEZ Ot F32.9 MAJOR DEPRESSIVE DISORDER, SINGLE EPISOD 09/18/2019 RICARDO DOMINGUEZ Ot O26.892 OTH RELATED CONDITIONS, SECOND 09/18/2019 RICARDO DOMINGUEZ Ot O99.342 OTH MENTAL DISORDERS COMP , SEC 09/18/2019 RICARDO DOMINGUEZ Ot O9A.22 INJ/POISN/OTH CONSEQ OF EXTERNAL CAUSES 09/18/2019 RICARDO DOMINGUEZ Ot R 21 RASH AND OTHER NONSPECIFIC SKIN ERUPTION 09/18/2019 RICARDO DOMINGUEZ Ot T36.95XA ADVERSE EFFECT OF UNSP SYSTEMIC ANTIBIOT 09/18/2019 RICARDO DOMINGUEZ Ot Z3A.15 15 WEEKS GESTATION OF 09/18/2019 RICARDO DOMINGUEZ Ot Z90.49 ACQUIRED ABSENCE OF OTHER SPECIFIED PART 09/18/2019 RICARDO DOMINGUEZ Ot Z90.89 ACQUIRED ABSENCE OF OTHER ORGANS Procedures Code Description Performed By Per mitesh On [id number] EX TRACTION OF POC, LOW CERVICAL, OPEN AP 05/03/2018 Results Test Result Range Urine Culture - 01/20/17 14:48 PRELIM CULTURE RESULTS >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 AGUSTO / ID to Follow. MEDIA PLATED Setup at 17:18 on 01/20/2017 CULTURE SOURCE express care collection Sensi - 01/20/17 14:48 Ampicillin/Sulbactam <=8/4 Ampicillin <=2 Amoxicillin/K Clavulanate <=4/2 Ceftriaxone >32 Clindamycin >4 Cefoxitin Screen N/R Ciprofloxacin >2 Daptomycin 2 Erythromycin >4 Nitrofurantoin <=32 Gentamicin <=4 Gentamicin Synergy Screen <=500 Inducible Clindamycin N/R Levofloxacin 4 Linezolid 2 Moxifloxacin <=0.5 Oxacillin >2 Penicillin 2 Rifampin >2 Streptomycin Synergy <=1000 Synercid N/R Trimethoprim/ Sulfamethoxazole <=0.5/9.5 Tetracycline <=4 Vancomycin 2 FINAL CULTURE RESULTS Enterococcus faecalis ([place] te 2) Sensi - 01/20/17 14:48 FINAL CULTURE RESULTS Escherichia coli (Isolate 1) Ampicillin/Sulbactam 16/8 Ampicillin >16 Amoxicillin/K Clavulanate <=8/4 Ceftriaxone <=8 Ciprofloxacin <=1 Nitrofurantoin <=32 Gentamicin <=4 Levofloxacin <=2 Trimethoprim/ Sulfamethoxazole >2/38 Tetracycline >8 Amikacin <=16 Aztreonam <=8 Ceftazidime <=1 Ceftazidime/K Clavulanate <=0.25 Cephalothin 16 Cefotaxime <=2 Cefotaxime/K Clavulanate <=0.5 Cefoxitin <=8 Cefazolin <=8 Cefepime <=8 Cefuroxime <=4 Ertapenem <=1 Imipenem <=4 Meropenem <=4 Piperacillin/Tazobactam <=16 Piperacillin >64 Tigecycline <=2 Tobramycin <=4 CULTURE, GENITAL - 10/08/17 15:08 CULTURE, GENITAL SEE NOTE NRG CBC - 01/17/18 15:36 WHITE BLOOD CELL COUNT 12.2 Thousand/uL 3.8-10.8 RED BLOOD CELL COUNT 3.34 Million/uL 3.8 0-5.10 HEMOGLOBIN 10.3 g/dL 11.7-15.5 HEMATOCRIT 30.7 % 35.0-45.0 MCV 91.9 fL 80.0-100.0 MCH 30.8 pg 27.0-33.0 MCHC 33.6 g/dL 32.0-36.0 RDW 12.3 % 11.0-15.0 PLATELET COUNT 210 Thousand/uL 140-400 MPV 9.7 fL 7.5-12.5 ABSOLUTE NEUTROPHILS 9894 cells/uL 1500- 7800 ABSOLUTE LYMPHOCYTES 1464 cells/uL 850-3 900 ABSOLUTE MONOCYTES 720 cells/uL 200-950 ABSOLUTE EOSINOPHILS 85 cells/uL 15-500 ABSOLUTE BASOPHILS 37 cells/uL 0-200 NEUTROPHILS 81.1 % NRG LYMPHOCYTES 12.0 % NRG MONOCYTES 5.9 % NRG EOSINOPHILS 0.7 % NRG BASOPHILS 0.3 % NRG CULTURE, GROUP B STREP (VAGINAL) - 04/02 15:15 STREPTOCOCCUS, GROUP B CULTURE SEE NOTE NRG CULTURE, URINE - 06/20/18 17:55 CULTURE, URINE, ROUTINE SEE NOTE NRG Complete urinalysis with reflex to cultu re - 09/23/18 00:55 Urine color determination YELLOW NRG Urine clarity determination CLEAR NR G Urine pH measurement by test strip 6 5-9 Specific gravity of urine by test strip 1.010 1.016-1.022 Urine protein assay by test strip, semi-quantitative NEGATIVE NEGATIVE Urine glucose detection by automated test strip NE GATIVE NEGATIVE Erythrocytes detection in urine sediment by light micr oscopy NEGATIVE NEGATIVE Urine ketones detection by automated test strip NE GATIVE NEGATIVE Urine nitrite detection by test strip NEGATIVE NEGATIVE Urine total bilirubin detection by test strip NEGA TIVE NEGATIVE Urine urobilinogen measurement by automated test strip (mass/volume) NORMAL NORMAL Urine leukocyte esterase detection by dipstick NEG ATIVE NEGATIVE Automated urine sediment erythrocyte cou nt by microscopy (number/high power field) RARE NRG Automated urine sediment leukocyte count by microscopy (number/high power field) RARE NRG Bacteria detection in urine sediment by light microsco py FEW NRG Squamous epithelial cells detection in u rine sediment by light microscopy 5-10 NRG Crystals detection in urine sediment by light microsco py NONE NRG Casts detection in urine sediment by light microscopy NONE NRG Mucus detection in urine sediment by light microscopy NEGATIVE NRG Complete urinalysis with reflex to culture NO NRG Urine drug screening test - 09/23/18 00: 55 Urine phencyclidine detection by screening method NEGATIVE NEGATIVE Urine benzodiazepines detection by screening method NEGATIVE NEGATIVE Urine cocaine detection NEGATIVE NEGATI VE Urine amphetamines detection by screening method N EGATIVE NEGATIVE Urine methamphetamine detection by screening method NEGATIVE NEGATIVE Urine cannabinoids detection by screening method N EGATIVE NEGATIVE Urine opiates detection by screening method NEGATI VE NEGATIVE Urine barbiturates detection NEGATIVE N EGATIVE Screening urine tricyclic antidepressants detection NEGATIVE NEGATIVE Urine methadone detection by screening method NEGA TIVE NEGATIVE Urine oxycodone detection NEGATIVE NEGA TIVE Urine propoxyphene detection NEGATIVE N EGATIVE Complete blood count (CBC) with automate d white blood cell (WBC) differential - 09/23/18 23:40 Blood leukocytes automated count (number/volume) 6.6 10*3/uL 4.3-11.0 Blood erythrocytes automated count (number/volume) 4.62 10*6/uL 4.35-5.85 Venous blood hemoglobin measurement (mass/volume) 12.8 g/dL 11.5-16.0 Blood hematocrit (volume fraction) 39 % 35-52 Automated erythrocyte mean corpuscular volume 84 [ foz_us] 80-99 Automated erythrocyte mean corpuscular h emoglobin (mass per erythrocyte) 28 pg 25-34 Automated erythrocyte mean corpuscular h emoglobin concentration measurement (mass/volume) 33 g/dL 32-36 Automated erythrocyte distribution width ratio 15. 1 % 10.0- 14.5 Automated blood platelet count (count/volume) 236 10*3/uL 130-400 Automated blood platelet mean volume measurement 9.2 [foz_us] 7.4-10.4 Automated blood neutrophils/100 leukocytes 66 % 42-75 Automated blood lymphocytes/100 leukocytes 24 % 12-44 Blood monocytes/100 leukocytes 8 % 0-12 Automated blood eosinophils/100 leukocytes 2 % 0-10 Automated blood basophils/100 leukocytes 0 % 0-10 Blood neutrophils automated count (number/volume) 4.3 10*3 1.8-7.8 Blood lymphocytes automated count (number/volume) 1.6 10*3 1.0-4.0 Blood monocytes automated count (number/volume) 0. 5 10*3 0.0-1.0 Automated eosinophil count 0.1 10*3/uL 0 .0-0.3 Automated blood basophil count (count/volume) 0.0 10*3/uL 0.0-0.1 Comprehensive metabolic panel - 09/23/18 23:40 Serum or plasma sodium measurement (moles/volume) 143 mmol/L 135-145 Serum or plasma potassium measurement (moles/volume) 3.6 mmol/L 3.6-5.0 Serum or plasma chloride measurement (moles/volume) 109 mmol/L 98-107 Carbon dioxide 21 mmol/L 21-32 Serum or plasma anion gap determination (moles/volume) 13 mmol/L 5-14 Serum or plasma urea nitrogen measurement (mass/volume ) 8 mg/dL 7-18 Serum or plasma creatinine measurement (mass/volume) 0.85 mg/dL 0.60-1.30 Serum or plasma urea nitrogen/creatinine mass ratio 9 NRG Serum or plasma creatinine measurement w ith calculation of estimated glomerular filtration rate > NRG Serum or plasma glucose measurement (mass/volume) 86 mg/dL 70-105 Serum or plasma calcium measurement (mass/volume) 9.7 mg/dL 8.5-10.1 Serum or plasma total bilirubin measurement (mass/volu me) 0.3 mg/dL 0.1-1.0 Serum or plasma alkaline phosphatase herb surement (enzymatic activity/volume) 64 U/L 40-136 Serum or plasma aspartate aminotransfera se measurement (enzymatic activity/volume) 17 U/L 5-34 Serum or plasma alanine aminotransferase measurement (enzymatic activity/volume) 14 U/L 0-55 Serum or plasma protein measurement (mass/volume) 7.4 g/dL 6.4-8.2 Serum or plasma albumin measurement (mass/volume) 4.9 g/dL 3.2-4.5 Serum or plasma amylase measurement (enz ymatic activity/volume) - 09/23/18 23:40 Serum or plasma amylase measurement (enzymatic activit y/volume) 73 U/L 25-125 Serum or plasma thyrotropin measurement by detection limit <=0.05 miu/l (units/volume) - 09/23/18 23:40 Serum or plasma thyrotropin measurement by detection limit <=0.05 miu/l (units/volume) 1.81 u[iU]/mL 0.35-4.94 Serum or plasma salicylates measurement (mass/volume) - 09/23/18 23:40 Serum or plasma salicylates measurement (mass/volume) < mg/dL 5.0-20.0 Serum or plasma acetaminophen measuremen t (mass/volume) - 09/23/18 23:40 Serum or plasma acetaminophen measurement (mass/volume ) < ug/mL 10-30 Serum or plasma ethanol measurement (mas s/volume) - 09/23/18 23:40 Serum or plasma ethanol measurement (mass/volume) < mg/dL <10 Urine beta human chorionic gonadotropin (hCG) measurement - 09/24/18 00:55 Urine beta human chorionic gonadotropin (hCG) measurem ent NEGATIVE NEGATIVE Complete blood count (CBC) with automate d white blood cell (WBC) differential - 04/04/19 13:45 Blood leukocytes automated count (number/volume) 7.6 10*3/uL 4.3-11.0 Blood erythrocytes automated count (number/volume) 4.69 10*6/uL 4.35-5.85 Venous blood hemoglobin measurement (mass/volume) 13.4 g/dL 11.5-16.0 Blood hematocrit (volume fraction) 40 % 35-52 Automated erythrocyte mean corpuscular volume 86 [ foz_us] 80-99 Automated erythrocyte mean corpuscular h emoglobin (mass per erythrocyte) 29 pg 25-34 Automated erythrocyte mean corpuscular h emoglobin concentration measurement (mass/volume) 33 g/dL 32-36 Automated erythrocyte distribution width ratio 12. 7 % 10.0- 14.5 Automated blood platelet count (count/volume) 247 10*3/uL 130-400 Automated blood platelet mean volume measurement 9.3 [foz_us] 7.4-10.4 Automated blood neutrophils/100 leukocytes 72 % 42-75 Automated blood lymphocytes/100 leukocytes 21 % 12-44 Blood monocytes/100 leukocytes 7 % 0-12 Automated blood eosinophils/100 leukocytes 0 % 0-10 Automated blood basophils/100 leukocytes 0 % 0-10 Blood neutrophils automated count (number/volume) 5.4 10*3 1.8-7.8 Blood lymphocytes automated count (number/volume) 1.6 10*3 1.0-4.0 Blood monocytes automated count (number/volume) 0. 5 10*3 0.0-1.0 Automated eosinophil count 0.0 10*3/uL 0 .0-0.3 Automated blood basophil count (count/volume) 0.0 10*3/uL 0.0-0.1 Blood type T Indirect antibody screen pa fallon - 04/04/19 13:45 WRISTBAND NUMBER [id number] NRG ABO+Rh group OP NRG Blood group antibody screen NEGATIVE NR G Methicillin resistant Staphylococcus aur eus (MRSA) screening culture - 04/04/19 13:45 Methicillin resistant Staphylococcus aureus (MRSA) scr eening culture NEG NRG Coronavirus SARS-CoV-2 SO 2019 - 0 08:00 Coronavirus Ab [Units/volume] in Serum Negative Negative Encounters ACCT No. Visit Date/Time Discharge Status Pt. Type Provider Facility Loc./Unit Complaint [id number] 06/20/2018 14:00:00 06/20/2018 23:59: 59 CLS Outpatient KE CHAMBERS [facility] [id number] 06/20/2018 14:00:00 Document Registration [id number] 04/02/2018 14:20:00 Document Registration [id number] 01/17/2018 14:20:00 Document Registration [id number] 10/08/2017 14:20:00 Document Registration [id number] 01/20/2017 17:09:00 01/20/2017 23:59: 00 DIS Outpatient Zoran Kuo [id number] 08/31/2017 08:27:00 Document Registration [id number] 02/23/2020 05:55:00 020 15:13:00 DIS Outpatient SHARON SANTAMARIA MD [facility] PREOP PREVIOUS [id number] 09/14/2019 15:42:00 019 17:34:00 DIS Emergency RICARDO DOMINGUEZ [facility] ER 15 WKS PREG/FACIAL SWE LLING/RASH [id number] 04/04/2019 13:27:00 019 21:10:00 DIS Outpatient SHARON SANTAMARIA MD [facility] SDC BLIGHTED OVUM [id number] 09/23/2018 22:40:00 019 04:04:00 DIS Emergency DAXA HENAO DO a [facility] ER LACERATION RT ARM [id number] 05/03/2018 17:19:00 13:50:00 DIS Inpatient JAYNE VÁZQUEZ, FIDEL Vargas [facility] LDRP LABOR DELIVERY [id number] 05/03/2018 16:21:00 018 23:59:59 CLS Outpatient KE CHAMBERS MD [facility] RAD POST-TERM ,DEC REASED MOVEMENTS [id number] 01/24/2018 13:57:00 018 23:59:59 CLS Outpatient KE CHAMBERS MD [facility] RAD SECOND TRIMES TER [id number] 11/30/2017 13:54:00 018 23:59:59 CLS Outpatient KE CHAMBERS MD [facility] RAD O44.42 LOW LYING PLACEN TA [id number] 10/17/2017 11:07:00 23:59:59 CLS Outpatient KE CHAMBERS MD [facility] RAD Z34.00 NORMAL [id number] 02/27/2020 12:00:00 P TONEY SANTAMARIA MD, SHARON PASTRANA
[2020-02-27] MEDS ORDERED: OXYTOCIN PRE-MIX DRIP 1,000 ML IV ONE (11:35)
[2020-02-27] MEDS ORDERED: fentaNYL INJECTION 100 MCG/2 ML AMP ONE (11:35)
--- NOTE | 2020-02-27 11:37 | History & Physical ---
History and Physical Date Seen by Provider: Feb 27, 2020 Time Seen by Provider: 11:35 This patient is a 19-year-old 3 para 2 1 1 white female with a due date of March 03, 2020. She presents now at 39 weeks gestation for repeat delivery. She denies rupture membranes or bleeding. She said no problems with this to date. Her GBS culture obtained on January 29, 2020 was negative Allergies are to Macrobid which causes hives Medications are vitamins and Prozac Medical social and surgical histories are per the antepartum record HEENT exam is normal Neck is supple no lymphadenopathy no thyromegaly Abdomen gravid soft nontender nondistended Extremities show no clubbing cyanosis. There is no Homans sign. Pelvic exam is deferred Assessment and plan term at 39+ weeks gestation admitted now for repeat delivery. 39 week admitted for repeat Allergies and Home Medications Allergies Coded Allergies: nitrofurantoin (Verified Allergy, Mild, RASH, 02/20/20) Home Medications Docusate Sodium 100 Mg Capsule, 100 MG PO BID Prescribed by: SHARON GERONIMO on 02/19/20 1205 Fluoxetine HCl 20 Mg Capsule, 20 MG PO DAILY, (Reported) Ibuprofen 800 Mg Tablet, 800 MG PO Q6H PRN for PAIN Prescribed by: SHARON GERONIMO on 02/19/20 1205 Oxycodone HCl/Acetaminophen 1 Each Tablet, 1 TAB PO Q4H PRN for PAIN-MODERATE Prescribed by: SHARON GERONIMO on 02/19/20 1205 Patient Home Medication List Home Medication List Reviewed: Yes SHARON SANTAMARIA MD Feb 27, 2020 11:37
[2020-02-27] MEDS ORDERED: OXYC1TAB12 PO (11:39)
[2020-02-27] MEDS ORDERED: IBUP-1780 PO (11:39)
[2020-02-27] MEDS ORDERED: DOCU-143 PO (11:39)
--- NOTE | 2020-02-27 11:39 | Discharge Inst-Surgical ---
Discharge Inst-Surgical Depart Medication/Instructions New, Converted or Re-Newed RX: RX on Chart Consults/Follow Up Patient Instructions: as directed Orders & Referrals Follow Up Appt: RTC 1 week for incision check. Call to make follow up appt. for patient in 4 weeks. Wound Care: Remove bertin, apply benzoin and steri strips. Activity Per routine post instructions. Please call in RX to patient pharmacy. Diet as tolerated Patient may shower or tub bathe as desired. Continue home meds Activity Activity as Tolerated: No Diet Discharge Diet: No Restrictions SHARON SANTAMARIA MD Feb 27, 2020 11:39
[2020-02-27] MEDS ORDERED: D5 LR IV SOLUTION 1,000 ML IV SCH (12:38)
[2020-02-27] MEDS ORDERED: MEASLES,MUMPS,RUBELLA 1 EA INJ SC ONE (12:45)
[2020-02-27] MEDS ORDERED: ONDANSETRON 4 MG/2 ML (SDV) Z0FRAN IVP PRN (12:45)
[2020-02-27] MEDS ORDERED: BUPIVACAINE 0.5% 30 ML (SENSORCAINE) VIAL ONE (12:45)
[2020-02-27] MEDS ORDERED: TETANUS,DIPTH,PERTUSS P/F (BOOSTRIX) 0.5 ML VIAL IM ONE (12:45)
[2020-02-27] MEDS ORDERED: PHENYLEPHRINE 100 MCG/ML 10 ML (ANESTHESIA) SYR ONE (13:21)
--- NOTE | 2020-02-27 13:50 | NUR ---
Pt to room 306 via bed accompanied by RN, S.O. and . Pt and S.O. oriented to room and call light. SCD's on and activated. IV pitocin to pump. Encouraged pt to call when ready to ambulate to bathroom for assistance. Fresh ice water provided. Pt denies questions or concerns at this time.
[2020-02-27] MEDS: KETOROLAC 30 MG/ML VIAL IVP SCH ×2 (13:59→20:21)
[2020-02-27] MEDS: OXYTOCIN PRE-MIX DRIP 500 ML IV SCH ×2 (13:59→21:09)
[2020-02-27] MEDS: oxyCODONE/APAP 10/325MG (PERCOCET 10) TABLET PO PRN ×2 (16:33→23:28)
--- NOTE | 2020-02-27 18:15 | NUR ---
Pt assisted to bathroom via ambulation at this time. +void, 300ml urine. FFU/2, light rubra lochia noted, no clots expressed. Pericare performed, fresh vpad and underwear on. Pt assisted back to bed without incident.
--- NOTE | 2020-02-27 20:17 | OPERATIVE REPORT ---
DATE OF SERVICE: 02/27/2020 PREOPERATIVE DIAGNOSIS: Term at 39 weeks' gestation with previous . POSTOPERATIVE DIAGNOSIS: Term at 39 weeks' gestation with previous . OPERATIVE PROCEDURE: Repeat low transverse delivery of a viable female with Apgars of 8 and 9 at 1 and 5 minutes respectively, weighted 7 pounds. Cord blood gas was 7.30 and a time of 12:17. OPERATIVE DESCRIPTION: With the patient in the supine position under satisfactory spinal analgesia, she was prepped and draped in the usual fashion for abdominal surgery. Palma catheter was placed in the urinary bladder. A Pfannenstiel incision was made through the skin with the scalpel at the site of the patient's previous Pfannenstiel incision. She had a large hypertrophic scar that was removed, then the abdomen entered in the usual manner. Bladder retractor placed into position and clean scalpel used to make a 4 cm hysterotomy incision transversely across the lower uterine segment. That was extended by blunt dissection as well, releasing a moderate amount of clear amniotic fluid. The incision was extended bluntly. The infant was delivered via the incision using Aguilar forceps to facilitate delivery and avoid excessive compression and pressure on the patient's abdomen. Infant was bulb suctioned on delivery of the head and again on completion of delivery. The umbilical cord was doubly clamped and cut and the infant passed to the pediatric nurse in attendance for delivery. Cord bloods were obtained. The placenta delivered spontaneously Conner. It was normal with 3-vessel cord. The uterus was exteriorized and interior wiped clean with a wet laparotomy sponge. Uterine incision closed with running locked suture of 2-0 Vicryl. Hemostasis was complete. The uterus was returned to abdominal cavity. All blood clot and debris removed from the abdominal cavity. With sponge, needle counts correct and hemostasis assured, the anterior parietal peritoneum was closed with running suture of 2-0 Vicryl. Rectus muscles were closed with that suture as well. The rectus fascia was closed with 2-0 Vicryl, subcutaneous tissue was closed with 2-0 Vicryl and the skin was stapled. Sponge and needle counts were correct on completion of the procedure. Estimated blood loss was around 500 mL. The patient tolerated the procedure well and was transferred to the recovery room in stable condition. The remained at the warmer attached to the operating room to remain near mom. Job ID: [id number] DocumentID: [id number] Dictated Date: 02/27/2020 12:42:15 Digital Advertising Analyst Date: 02/27/2020 20:15:32 Dictated By: SHARON SANTAMARIA MD
[2020-02-27] MEDS: DOCUSATE SODIUM 100 MG (COLACE) CAP PO SCH (20:20)
[2020-02-27] MEDS ORDERED: DOCUSATE SODIUM 100 MG (COLACE) CAP PO SCH (21:00)
[2020-02-28] MEDS: KETOROLAC 30 MG/ML VIAL IVP SCH ×2 (01:46→06:13)
[2020-02-28 03:48] VITALS: BP 103/61
[2020-02-28 08:38] VITALS: BP 123/78
[2020-02-28] MEDS: DOCUSATE SODIUM 100 MG (COLACE) CAP PO SCH (08:40)
--- NOTE | 2020-02-28 08:47 | Progress Note ---
Standard Progress Note Progress Notes/Assess & Plan Date Seen by a Provider: Feb 28, 2020 Time Seen by a Provider: 08:46 Progress/Assessment & Plan This patient is without complaint. She is ambulating, voiding, tolerating oral intake well has good pain control. Vital Signs Date Time Temp Pulse Resp B/P (MAP) Pulse Ox O2 Delivery O2 Flow Rate FiO2 02/28/20 08:38 36.6 86 16 123/78 (93) 99 Room Air 02/28/20 03:48 36.2 66 14 103/61 (75) 98 Room Air 02/27/20 23:28 36.5 74 18 123/82 (96) 100 Room Air 02/27/20 20:21 36.4 63 16 110/68 (82) 98 Room Air 02/27/20 16:50 36.6 73 20 115/67 (83) 100 Room Air 02/27/20 14:04 36.1 61 20 106/67 (80) 100 Room Air 02/27/20 13:46 36.2 18 112/61 (78) 98 Room Air 02/27/20 13:46 Room Air 02/27/20 13:31 36.2 18 102/63 (76) 100 Room Air 02/27/20 13:31 Room Air 02/27/20 13:16 Room Air 02/27/20 13:16 36.2 20 94/59 (71) 100 Room Air 02/27/20 13:01 Room Air 02/27/20 13:01 35.6 15 101/69 (80) 98 Room Air 02/27/20 12:46 Room Air 02/27/20 12:46 36.6 12 92/80 (84) 100 Room Air 02/27/20 11:00 36.9 85 20 100 Room Air I & O 02/28/20 07:00 Intake Total 4590 ml Output Total 2475 ml Balance 2115 ml Vital signs are stable. Patient is afebrile. Fundus is firm below the umbilicus and nontender. The surgical incision is clean dry and intact. Extremities show no clubbing cyanosis. There is no Homans sign. Assessment and plan postoperative day number 1 status post repeat delivery at 39 weeks gestation. Plan is for routine convalescence care today and discharge home tomorrow Final Diagnosis 39 week repeat delivery SHARON SANTAMARIA MD Feb 28, 2020 08:47
--- NOTE | 2020-02-28 10:41 | Anesthesia-Regional Post-Op ---
Regional Patient Condition Mental Status: Alert, Oriented x3 Circulation: Same as Pre-Op Headache: Absent Sensation: Full Recovery Motor Block: Absent Post Op Complications Complications None Follow Up Care/Instructions Patient Instructions None needed. Anesthesia/Patient Condition Patient is doing well, no complaints, stable vital signs, no apparent adverse anesthesia problems. No complications reported per nursing. JOSE A MURILLO CRNA Feb 28, 2020 10:41
[2020-02-28] MEDS ORDERED: IBUPROFEN 800 MG (MOTRIN) TAB PO SCH (12:45)
[2020-02-28 12:48] VITALS: BP 122/74
== END 2020-02-28 16:30 | disposition home or self-care (01) | DRG 788 ==
LOC: LDRP 10:12 → WS 14:17
PROVIDERS: ADMIT Obstetrics & Gynecology; ATTEND Obstetrics & Gynecology
PROC: 10D00Z1 Extraction of Products of Conception, Low, Open Approach (ICD-10-PCS; principal; 2020-02-27 11:53)
DX: O34.211 Maternal care for low transverse scar from previous cesarean delivery (principal); Z37.0 Single live birth; Z3A.39 39 weeks gestation of pregnancy
CPT/HCPCS: 36415; 85025; 86850; 86900; 86901; 90715